=== PATIENT | male | born 1985 | race Caucasian/White ===

== ENCOUNTER 2021-09-14 08:57 | Outpatient (REF) | payer OTHER, SELFPAY ==
[2021-09-14 11:39] LABS: Hematocrit 47.7 % (42.0-52.0); Hemoglobin 15.6 g/dl (14.0-18.0); Mean Corpuscular HGB Conc 32.7 g/dl (31.0-36.0); Mean Corpuscular Hemoglobin 28.5 pg (27.0-33.0); Mean Corpuscular Volume 87.2 fL (80.0-98.0); Mean Platelet Volume 9.5 fL (9.4-12.4); Platelet Count 403 X10*3/uL (160-400); Red Blood Count 5.47 X10*6/uL (4.60-5.80); Red Cell Distribution Width 14.7 % (11.0-16.0)
[2021-09-14 12:05] LABS: Alanine Aminotransferase 30 U/L (0-40); Albumin Level 4.8 g/dL (3.5-5.0); Alkaline Phosphatase 65 U/L (39-117); Anion Gap 13 (12-20); Aspartate Amino Transferase 19 U/L (5-37); Bilirubin Total 0.5 mg/dL (0.0-1.0); Blood Urea Nitrogen 15 mg/dL (9-16); Calcium 10.3 mg/dL (8.4-10.2); Carbon Dioxide 26 mmol/L (22-29); Chloride 108 mmol/L (96-108); Cholesterol 350 mg/dL; Estimated Glomerular Filt Rate > 60; Glucose Fasting 96 mg/dL (60-99); HDL Cholesterol 53 mg/dL; LDL Cholesterol Calculated 245 mg/dl; Potassium 4.7 mmol/L (3.3-5.1); Sodium 142 mmol/L (135-145); Total Protein 7.4 g/dL (6.5-8.0); Triglycerides 260 mg/dL
== END 2021-09-14 08:58 | disposition home or self-care (01) ==
LOC: HO.HMGCLDS 08:57
PROVIDERS: PCP Internal Medicine; Visit Provider Internal Medicine
DX: Z00.00 Encounter for general adult medical examination without abnormal findings (principal); F41.9 Anxiety disorder, unspecified
CPT/HCPCS: 36415; 80053; 80061; 85027

== ENCOUNTER 2021-10-07 13:00 | Outpatient (RCR) | payer OTHER, SELFPAY ==
--- NOTE | 2021-09-29 12:40 | MHC.PT.EP ---
[facility] [place] Office [place] Office [place] Office [address] Ameya Dodson [address] [phone] F: [phone] F: [phone] F: [phone] F: [phone] Physical Therapy Plan of Care Date of Evaluation: Date of Surgery: n/a Diagnosis: cervical radiculopathy Assessment: Patient is a 36 year old male presenting to PT with complaints of pain in his neck. Pt reports onset of pain began 6-7 years ago due to insidious onset. He presents today with impairments in pain, cervical ROM, DNF strength, headaches, and posture. Pt's current occupation is none, with baseline physical activities including sleep and ADLs. Pt expresses snf goal of getting back to the gym and lifting weights, and is motivated to work towards this in PT. Clinical presentation today is most consistent with signs and sx associated with possible cervical radiculopathy vs cervicogenic headaches and pt will benefit from skilled PT to address the following problems and impairments noted upon evaluation: pain, cervical ROM, DNF strength, headaches, and posture. These problems limit the patient with the following functional activities: ADLs and sleep. The prescribed treatment plan of care is medically necessary. Co-morbidities of none were identified and taken into considerations of plan of care. Pt was educated on HEP, role of PT, prognosis, POC. Frequency and Duration: The patient will be seen 2 x week x 4 weeks Short Term Goals: Pt will demonstrate <2 headaches a week in 2 weeks. Pt will demonstrate cervical AROM in available range with min to no pain in 2 weeks. Pt will demonstrate ability to perform a chin tuck without cues and appropriate form in 2 weeks. Pt will demonstrate improved postural awareness by sitting with biomechanically correct posture without cues throughout session to improve overall postural function in 2 weeks. 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 Pt will demonstrate ability to sleep through the night with min to no pain in 4 weeks. Pt will demonstrate ability to complete all ADLs with min to no pain in 4 weeks for return to PLOF. Treatment Plan: Modalities to reduce pain, spasms and effusion. Manual therapy to restore motion and function. Therapeutic exercise to improve strength and flexibility. Neuromuscular re-education for posture and balance. Therapeutic activities to return to functional activities of daily living. Electronically signed by: Leatha Bowman PT, DPT, ATC Please sign and return to therapist. Thank you for your referral.
--- NOTE | 2021-12-03 11:13 | MHC.PT.DC ---
[facility] [place] Office [place] Office [place] Office [address] Ameya Dodson [address] [phone] F: [phone] F: [phone] F: [phone] F: [phone] Physical Therapy Discharge Report Diagnosis: cervical radiculopathy Date of Surgery: n/a Date of Evaluation: 09/29/21 Date of Discharge: 12/03/21 Treatments to Date: 3 Cancellations to Date: 6 No Shows to Date: 1 Discharge Status: Visit Non-compliance Discharge Summary: Pt had been placed on 30 day hold and instructed to reach out if he would like to be scheduled. He has not done so and therefore current status unknown at this time. Electronically signed by: Leatha Bowman, PT, DPT, ATC Please sign and return to therapist. Thank you for your referral.
== END 2021-12-03 11:13 | disposition home or self-care (01) ==
LOC: HO.PTCHIC 13:00
PROVIDERS: PCP Internal Medicine; Visit Provider Internal Medicine
DX: M54.12 Radiculopathy, cervical region (principal)
CPT/HCPCS: 97110; 97140; 97161

== ENCOUNTER 2021-11-04 13:41 | Outpatient (REF) | payer OTHER, SELFPAY ==
--- NOTE | ~2021-11-04 | MR_ITS ---
MRI OF THE BRAIN WITHOUT IV CONTRAST INDICATION: Headache. COMPARISON: MRI brain 05/25/2017. TECHNIQUE: Multiplanar multisequence MR imaging of the brain was obtained without IV contrast. FINDINGS: There is no hydrocephalus, extra-axial surface collection, or herniation. The major flow voids at the skull base are preserved. There is no acute infarct on diffusion-weighted imaging. There is no intracranial hemorrhage on the gradient recalled echo acquisition. The midline structures are normal. The cerebellar tonsils are normally positioned. The cerebellum and brainstem are normal. The craniocervical junction is normal. Osseous marrow signal intensity is homogenous. The visualized soft tissues are unremarkable. MR/MR head/brain wo con IMPRESSION: Unremarkable MRI of the brain.
== END 2021-11-04 13:42 | disposition home or self-care (01) ==
LOC: HO.MRI 13:41
PROVIDERS: Visit Provider Internal Medicine
DX: G43.909 Migraine, unspecified, not intractable, without status migrainosus (principal); M54.12 Radiculopathy, cervical region
CPT/HCPCS: 70551

== ENCOUNTER 2021-12-21 12:32 | Outpatient (REF) | payer OTHER, SELFPAY ==
[2021-12-21 14:03] LABS: Cholesterol 254 mg/dL; HDL Cholesterol 48 mg/dL; LDL Cholesterol Calculated 163 mg/dl; Triglycerides 219 mg/dL
== END 2021-12-21 12:33 | disposition home or self-care (01) ==
LOC: HO.HMGCLDS 12:32
PROVIDERS: PCP Internal Medicine; Visit Provider Internal Medicine
DX: E78.5 Hyperlipidemia, unspecified (principal); D49.2 Neoplasm of unspecified behavior of bone, soft tissue, and skin; G43.909 Migraine, unspecified, not intractable, without status migrainosus
CPT/HCPCS: 36415; 80061

== ENCOUNTER 2022-04-28 11:36 | Outpatient (REF) | payer OTHER, SELFPAY ==
[2022-04-28 13:42] LABS: MANUAL DIFF FLAG NO
[2022-04-28 13:49] LABS: Basophils Absolute Auto 0.1 X10*3/uL (0.0-0.2); Basophils Percent Auto 1.1 % (0-2); Eosinophils Absolute Auto 0.2 X10*3/uL (0.0-0.4); Eosinophils Percent Auto 2.4 % (0-4); Hematocrit 44.9 % (42.0-52.0); Hemoglobin 14.6 g/dl (14.0-18.0); Imm Gran Abs Auto 0.02 X10*3/uL (0.00-0.03); Imm Gran Pct Auto 0.3 % (0.0-0.4); Lymphocytes Percent Auto 30.9 % (20-40); Mean Corpuscular HGB Conc 32.5 g/dl (31.0-36.0); Mean Corpuscular Hemoglobin 27.9 pg (27.0-33.0); Mean Corpuscular Volume 85.9 fL (80.0-98.0); Mean Platelet Volume 9.7 fL (9.4-12.4); Monocytes Absolute Auto 0.6 X10*3/uL (0.1-1.2); Neutrophils Absolute Auto 3.7 x10*3/uL (2.0-8.3); Neutrophils Percent Auto 56.3 % (45-73); Platelet Count 446 X10*3/uL (160-400); Red Blood Count 5.23 X10*6/uL (4.60-5.80); Red Cell Distribution Width 15.2 % (11.0-16.0); White Blood Count 6.5 X10*3/uL (4.8-10.8)
[2022-04-28 14:12] LABS: Alanine Aminotransferase 23 U/L (0-40); Albumin Level 4.8 g/dL (3.5-5.0); Alkaline Phosphatase 68 U/L (39-117); Anion Gap 16 (12-20); Aspartate Amino Transferase 21 U/L (5-37); Bilirubin Total 0.4 mg/dL (0.0-1.0); Blood Urea Nitrogen 18 mg/dL (9-16); Calcium 9.9 mg/dL (8.4-10.2); Carbon Dioxide 27 mmol/L (22-29); Chloride 105 mmol/L (96-108); Cholesterol 292 mg/dL; Estimated Glomerular Filt Rate > 60; Glucose Fasting 93 mg/dL (60-99); HDL Cholesterol 58 mg/dL; LDL Cholesterol Calculated 205 mg/dl; Potassium 4.9 mmol/L (3.3-5.1); Sodium 143 mmol/L (135-145); Total Protein 7.4 g/dL (6.5-8.0); Triglycerides 147 mg/dL; Uric Acid 6.5 mg/dL (3.4-7.0)
[2022-04-28 14:13] LABS: Uric Acid Urine Random 83.4 mg/dL
[2022-04-28 14:28] LABS: TSH reflex Free T4 0.58 uIU/mL (0.32-4.0)
[2022-04-30 18:16] LABS: Calcium, Random Urine 18.5 mg/dL
[2022-05-02 17:32] LABS: PTHI 43 pg/mL (16-77)
[2022-05-03 19:12] LABS: Citric Acid, Random Urine 174 mg/g creat (65-650); Creatinine, Random Urine 217 mg/dL (20-320)
== END 2022-04-28 11:37 | disposition home or self-care (01) ==
LOC: HO.HMGCLDS 11:36
PROVIDERS: PCP Internal Medicine; Visit Provider Internal Medicine
DX: E78.5 Hyperlipidemia, unspecified (principal); N20.0 Calculus of kidney
CPT/HCPCS: 36415; 80053; 80061; 82310; 82330; 82507; 83970; 84300; 84443; 84550; 84560; 85025

== ENCOUNTER → 2022-06-29 08:52 | Outpatient (BNVA) | payer OTHER, SELFPAY | PROVIDERS: PCP Internal Medicine; Visit Provider Dietitian, Registered | DX: E78.5 Hyperlipidemia, unspecified (principal) | CPT/HCPCS: 97802 ==

== ENCOUNTER 2023-07-27 08:57 | Outpatient (AMB) | payer OTHER, SELFPAY ==
--- NOTE | 2023-07-27 09:00 | MHC.PC.OV ---
Vital Signs 07/27/23 09:01 Height 5 ft 7 in Weight 197 lb BMI 30.9 BP 110/74 Blood Pressure Location Lt brachial Position Sitting Pulse 87 Pulse Source Pulse Oximeter Pulse Oximetry (%) 98 Oxygen Delivery Method Room Air Intake Visit Reasons: Annual PE/hemorrhoids Intake Note: Pt is here today for PE. Allergies No Known Allergies Allergy (Verified 07/27/23 09:03) Medication List - Last Reconciled 07/27/23 by Lizett Roe MD omeprazole 20 mg PO DAILY Tobacco use date assessed: 07/27/23 Dental Screening Dental Screen Date: 07/27/23 Did you have a dental visit in the last 12 months?: No Did you have a dental problem in the last 6 months where you did not have access to dental care?: Yes Was dental information given to patient?: Yes HPI Annual PE/hemorrhoids HPI Details Patient presents for physical. He complains of chronic external hemorrhoids painful and bleeding on and off for the last few years, getting worse over last few months. Patient denies abdominal pain but reports having intermittent diarrhea. Patient complains of intermittent palpitations worse when walking fast or jogging. Patient denies exercise induced chest pain but has a history of hyperlipidemia and family history of coronary artery disease. [facility] Medical History (Updated 07/27/23 @ 10:03 by Lizett Roe MD) Skin growth New onset headache Hyperlipidemia GERD (gastroesophageal reflux disease) Migraine headache Annual physical exam Anxiety Family History Father CAD (coronary artery disease), Onset Age: 40 Substance use disorder Mother Mental health disorder Social History Household Members Other:: , 11 yo son, Housing: Apartment Patient Tobacco Use Status: Current everyday Tobacco user Tobacco use type: Cigarette Cigarettes Per Day: 6 Years Smoked: 2004 e-Cigarette/Vaping Use: Never Used service: No Current occupational status: unemployed Current occupational exposures/hazards: No Cognitive needs: No Hearing needs: No Vision needs: No Questionnaire PHQ-9 Over the last 2 weeks, how often have you been bothered by any of the following problems? 1. Little interest or pleasure in doing things: not at all 2. Feeling down, depressed, or hopeless: not at all 3. Trouble falling or staying asleep, or sleeping too much: nearly every day 4. Feeling tired or having little energy: nearly every day 5. Poor appetite or overeating: several days 6. Feeling bad about yourself - or that you are a failure or have let yourself or your family down: not at all 7. Trouble concentrating on things, such as reading the newspaper or watching television: not at all 8. Moving or speaking so slowly that other people could have noticed. Or the opposite - being so fidgety or restless that you have been moving around a lot more than usual: not at all 9. Thoughts that you would be better off or of hurting yourself in some way: not at all Total score: 7 Depression Screening Interpretation: Negative Depression Screening Done: Yes Source: Developed by Drs. Chris Santos, Moira Ontiveros, Adebayo Trevizo and colleagues, with an educational adolfo from [employer]. Thrive Questionnaire Date Thrive assessed: 07/27/23 I am a: Patient What is your living situation today?: I have a steady place to live Within the past 12 months, did the food you bought not last and you didn't have the money to get more?: Never true Within the past 12 months, did you worry whether your food would run out before you got money to buy more?: Never true Do you have trouble paying for medicines?: Yes Do you have trouble getting transportation to medical appointments?: No Do you have trouble paying your heating and electricity bill?: No Do you have trouble taking care of your child, family member or friend?: No Do you have trouble with day-to-day activities such as bathing, preparing meals, shopping, managing finances, etc.?: No Are you currently unemployed and looking for a job?: No Are you interested in more education?: Yes Please select the resources that you would like help with: Education AUDIT C Alcohol Use Questionnaire (AUDIT-C) 1. How often do you have a drink containing alcohol?: Monthly or less 2. How many drinks containing alcohol do you have on a typical day when you are drinking?: 1 or 2 3. How often do you have six or more drinks on one occasion?: Never Total Score: 1 ALIX-7 AMB Questionnaire ALIX-7 Date ALIX - 7 assessed: 07/27/23 Feeling nervous, anxious, or on edge: 1 = Several days Not being able to stop or control worryin = Several days Worrying too much about different things: 0 = Not at all Trouble relaxin = Several days Being so restless that it is hard to sit still: 0 = Not at all Becoming easily annoyed or irritable: 0 = Not at all Feeling afraid as if something awful might happen: 1 = Several days Total ALIX-7 score (0-4 normal; 5-9 mild; 10-14 moderate; 15-21 severe): 4 Source: Developed by Drs. Chris Santos, Moira Ontiveros, Adebayo Trevizo and colleagues, with an educational adolfo from [employer]. Review of Systems Const All systems reviewed & are unremarkable except as noted in HPI and below Reports no additional complaints Eyes Reports no additional complaints ENT Reports no additional complaints Card Reports no additional complaints Resp Reports no additional complaints GI Reports no additional complaints Reports no additional complaints Musc Reports no additional complaints Physical exam (Primary Care) Vital Signs: Last Vital Signs Pulse 87 07/27/23 09:01 BP 110/74 07/27/23 09:01 Pulse Ox 98 07/27/23 09:01 Oxygen Delivery Method Room Air 07/27/23 09:01 BMI result Body Mass Index 30.9 Tobacco/Smoking Status: Tobacco use Status Tobacco use date assessed 07/27/23 07/27/23 09:08 Patient Tobacco Use Status Current everyday Tobacco 07/27/23 09:34 Tobacco use type Cigarette 07/27/23 09:34 e-Cigarette/Vaping Use Never Used 07/27/23 09:34 Depression Screening Interpretation: Negative Thrive Assessment: Date of Thrive Assessment Date Thrive assessed 10/22/21 07/27/23 09:01 Const General: no acute distress HENMT Head: Yes normal to inspection Ears: hearing grossly normal bilaterally Face and sinus: Yes normal facial exam Mouth: Normal oral and palatal mucosa present Throat: Yes posterior oropharynx normal Eyes General: appearance normal, both eyes and all related structures Neck Neck: Yes no lymphadenopathy and Yes supple Resp Effort & Inspection: normal respiratory effort Auscultation: clear to auscultation bilaterally Cardio Rhythm: regular rhythm Heart sounds: S1 normal heart sound present and S2 normal heart sound present GI Inspection: Yes normal to inspection Palpation (GI): Soft to palpation Percussion: Yes normal to percussion Auscultation: normal bowel sounds Other: Patient declined rectal exam Assessment and Plan Assessment & Plan (1) Nephrolithiasis: Comment: since 21 year old, s/p stent 03/15, f/u Dr. Casey Code(s): N20.0 - Calculus of kidney Plan: Follow-up with nephrology (2) Hyperlipidemia: Code(s): E78.5 - Hyperlipidemia, unspecified Plan: Low-cholesterol diet regular physical activity discussed with the patient. he will have a fasting blood work for lipid profile. He agreed to starting 20 mg of atorvastatin and will have repeat lipid profile in 2 months (3) Annual physical exam: Code(s): Z00.00 - Encounter for general adult medical examination without abnormal findings Plan: Well-balanced diet regular physical activity discussed with the patient (4) Rectal bleeding: Code(s): K62.5 - Hemorrhage of anus and rectum Plan: Referred to GI (5) Hemorrhoids: Code(s): K64.9 - Unspecified hemorrhoids Plan: Try Proctosol cream and referred to GI, well-balanced high-fiber diet (6) Palpitations: Code(s): R00.2 - Palpitations Plan: EKG showed normal sinus rhythm no ST-T changes. schedule exercise stress test. (7) FHx: early coronary artery disease: Comment: father [place] at 44 Code(s): Z82.49 - Family history of ischemic heart disease and other diseases of the circulatory system Orders: Orders Lipid Panel Today E78.5 - Hyperlipidemia, unspecified, Z00.00 - Encounter for general adult medical examination without abnormal findings AMB EKG-In Office Today K21.9 - Gastro-esophageal reflux disease without esophagitis, R00.2 - Palpitations Comprehensive [place]. Panel Fast 2 Months E78.5 - Hyperlipidemia, unspecified Comprehensive [place]. Panel Fast Today E78.5 - Hyperlipidemia, unspecified, Z00.00 - Encounter for general adult medical examination without abnormal findings Complete Blood Count Auto Diff Today E78.5 - Hyperlipidemia, unspecified, Z00.00 - Encounter for general adult medical examination without abnormal findings TSH reflex Free T4 Today E78.5 - Hyperlipidemia, unspecified, Z00.00 - Encounter for general adult medical examination without abnormal findings CA stress test Today R00.2 - Palpitations, Z82.49 - Family history of ischemic heart disease and other diseases of the circulatory system Lipid Panel 2 Months E78.5 - Hyperlipidemia, unspecified Referrals Urology Referral N20.0 - Calculus of kidney Gastroenterology Referral K62.5 - Hemorrhage of anus and rectum, K64.9 - Unspecified hemorrhoids Medications: New Proctosol HC 2.5% (hydrocortisone) 1 appl MD BID-QID PRN 60 grams 1RF hemorrhoids NS atorvastatin 20 mg PO DAILY 90 tabs 3RF Refilled omeprazole 20 mg PO DAILY 90 caps 3RF Coding Level of Care Code Est Pt Prev Care 40-64y(69534) Diagnoses Nephrolithiasis N20.0 Hyperlipidemia E78.5 Annual physical exam Z00.00 Rectal bleeding K62.5 Hemorrhoids K64.9 Palpitations R00.2 FHx: early coronary artery disease Z82.49
[2023-07-27 09:01] VITALS: BP 110/74; PULSE 87; O2SAT 98; BMI 30.9
== END 2023-07-27 10:04 | disposition home or self-care (01) ==
PROVIDERS: PCP Internal Medicine; Visit Provider Internal Medicine
DX: Z00.00 Encounter for general adult medical examination without abnormal findings (principal); N20.0 Calculus of kidney; E78.5 Hyperlipidemia, unspecified; K62.5 Hemorrhage of anus and rectum; K64.9 Unspecified hemorrhoids; R00.2 Palpitations; Z82.49 Family history of ischemic heart disease and other diseases of the circulatory system; F17.210 Nicotine dependence, cigarettes, uncomplicated
CPT/HCPCS: 99396

== ENCOUNTER 2023-07-27 10:04 | Outpatient (REF) | payer OTHER, SELFPAY ==
[2023-07-27 13:13] LABS: MANUAL DIFF FLAG NO
[2023-07-27 13:32] LABS: Basophils Percent Auto 0.6 % (0-2); Eosinophils Absolute Auto 0.2 X10*3/uL (0.0-0.4); Eosinophils Percent Auto 2.6 % (0-4); Hematocrit 45.3 % (42.0-52.0); Hemoglobin 14.9 g/dl (14.0-18.0); Imm Gran Abs Auto 0.02 X10*3/uL (0.00-0.03); Imm Gran Pct Auto 0.3 % (0.0-0.4); Lymphocytes Absolute Auto 2.4 X10*3/uL (1.2-4.9); Lymphocytes Percent Auto 34.8 % (20-40); Mean Corpuscular HGB Conc 32.9 g/dl (31.0-36.0); Mean Corpuscular Hemoglobin 28.6 pg (27.0-33.0); Mean Corpuscular Volume 86.9 fL (80.0-98.0); Mean Platelet Volume 9.4 fL (9.4-12.4); Monocytes Absolute Auto 0.6 X10*3/uL (0.1-1.2); Monocytes Percent Auto 9.2 % (2-11); Neutrophils Absolute Auto 3.7 x10*3/uL (2.0-8.3); Neutrophils Percent Auto 52.5 % (45-73); Platelet Count 409 X10*3/uL (160-400); Red Blood Count 5.21 X10*6/uL (4.60-5.80); Red Cell Distribution Width 14.5 % (11.0-16.0)
[2023-07-27 13:45] LABS: Alanine Aminotransferase 21 U/L (0-40); Albumin Level 4.5 g/dL (3.5-5.0); Alkaline Phosphatase 60 U/L (39-117); Anion Gap 10 (12-20); Aspartate Amino Transferase 18 U/L (5-37); Bilirubin Total 0.3 mg/dL (0.0-1.0); Blood Urea Nitrogen 14 mg/dL (9-16); Calcium 10.2 mg/dL (8.4-10.2); Carbon Dioxide 27 mmol/L (22-29); Chloride 112 mmol/L (96-108); Cholesterol 253 mg/dL (<200); Estimated Glomerular Filt Rate > 60; Glucose Fasting 97 mg/dL (60-99); HDL Cholesterol 52 mg/dL (>40); LDL Cholesterol Calculated 179 mg/dL (<100); Potassium 5.1 mmol/L (3.3-5.1); Sodium 144 mmol/L (135-145); Total Protein 7.3 g/dL (6.5-8.0); Triglycerides 113 mg/dL (<150)
[2023-07-27 14:32] LABS: TSH reflex Free T4 1.09 uIU/mL (0.32-4.0)
== END 2023-07-27 10:05 | disposition home or self-care (01) ==
LOC: HO.HMGCLDS 10:04
PROVIDERS: PCP Internal Medicine; Visit Provider Internal Medicine
DX: Z00.00 Encounter for general adult medical examination without abnormal findings (principal); E78.5 Hyperlipidemia, unspecified
CPT/HCPCS: 36415; 80053; 80061; 84443; 85025

== ENCOUNTER 2023-10-06 11:17 | Outpatient (AMB) | payer OTHER, SELFPAY ==
--- NOTE | 2023-10-06 11:22 | MHC.OFFVIS ---
Intake Vital Signs 10/06/23 11:25 Height 5 ft 7 in Weight 197 lb BMI 30.9 BP 120/59 L Blood Pressure Location Lt brachial Position Sitting Pulse 75 Intake Visit Reasons: Hemorrhoids Intake Note: Patient new consult for hemorrhoids. Patient cc: abdominal pain and bloating on and off, nauseas, diarrhea, and hemorrhoids with blood. Baseball Glove Stuffer Required: No Accompanied by: Self / Same As Patient Allergies No Known Allergies Allergy (Verified 10/06/23 11:21) HPI Hemorrhoids HPI Details 38-year-old male with past medical history of GERD, hyperlipidemia, migraine headache, palpitations, hemorrhoids is here today for initial consultation patient reports that lately he has been suffering from increased rectal bleeding and rectal pain. Diagnosed with hemorrhoids in the past. Never had any surgery. Patient is at this point where he would like to see a surgeon to see if his hemorrhoids can be removed. Patient also reports symptoms of abdominal cramping, postprandial abdominal bloating. Sometimes diarrhea and sometimes constipation. Patient denies melena or unintentional weight loss patient reports occasional nausea specially in the morning. Reports occasional dyspepsia without dysphagia or odynophagia [facility] Medical History (Updated 10/08/23 @ 13:22 by Yanira Gamez, [facility]) Skin growth New onset headache Hyperlipidemia GERD (gastroesophageal reflux disease) Migraine headache Annual physical exam Anxiety Surgical History (Updated 10/06/23 @ 11:22 by Mariama Cruz) History of kidney stones Family History Father CAD (coronary artery disease), Onset Age: 40 Substance use disorder Mother Mental health disorder Social History Household Members Other:: , 11 yo son, Housing: Apartment Patient Tobacco Use Status: Current everyday Tobacco user Tobacco use type: Cigarette Cigarettes Per Day: 6 Years Smoked: 2004 e-Cigarette/Vaping Use: Never Used service: No Current occupational status: unemployed Current occupational exposures/hazards: No Cognitive needs: No Hearing needs: No Vision needs: No Review of Systems Const Denies weight gain and Denies weight loss ENT Reports no additional complaints, Denies dysphagia and Denies odynophagia Card Reports no additional complaints Resp Reports no additional complaints GI Denies abdominal pain, Denies belching, Denies melena, Reports bloating, Reports hematochezia, Reports change in bowel habits, Reports constipation, Denies dysphagia, Denies excessive flatus, Denies dyspepsia, Reports heartburn, Denies diarrhea, Reports loose stools, Denies nausea, Denies odynophagia and Denies vomiting Reports no additional complaints Musc Reports no additional complaints Neuro Reports no additional complaints Psych Reports no additional complaints Endo Reports no additional complaints Physical Exam Vital Signs: Last Vital Signs Pulse 75 10/06/23 11:25 BP 120/59 L 10/06/23 11:25 BMI result Body Mass Index 30.9 Const General: healthy appearing, no acute distress and well developed Nutritional Appearance: obese Orientation/consciousness: patient oriented x3 Resp Effort & Inspection: normal respiratory effort, able to speak in complete sentences, no tracheal deviation and symmetric chest movement Auscultation: clear to auscultation bilaterally Cardio Rate: regular rate GI Inspection: Yes normal to inspection, No distended and Yes obesity Palpation (GI): Soft to palpation, not firm, nontender and No hepatosplenomegaly present Auscultation: normal bowel sounds General: Yes no CVA tenderness Back/Spine/Pelvis Back: no CVA tenderness Skin General skin exam: elasticity normal, turgor normal and dry skin Neuro General: patient oriented x3 Psych Appearance: grossly normal Mental Status: mental status grossly normal Assessment & Plan Assessment & Plan (1) Hemorrhoids: Code(s): K64.9 - Unspecified hemorrhoids Qualifiers: Hemorrhoid type: other Qualified Code(s): K64.8 - Other hemorrhoids (2) GERD (gastroesophageal reflux disease): Code(s): K21.9 - Gastro-esophageal reflux disease without esophagitis Qualifiers: Esophagitis presence: esophagitis presence not specified Qualified Code(s): K21.9 - Gastro-esophageal reflux disease without esophagitis (3) Postprandial abdominal bloating: Code(s): R14.0 - Abdominal distension (gaseous) (4) Postprandial diarrhea: Code(s): K52.9 - Noninfective gastroenteritis and colitis, unspecified Plan Will try to take fiber to help him bulk his stools and stool softener at nighttime to help him move his bowels better. Patient was encouraged to follow FODMAP diet. Continue omeprazole for GERD. Avoid dietary triggers and late night snacking. Staying upright for minimum 3 hours after meals discussed with patient. Low FODMAP diet discussed with patient as well. Patient will be referred to general surgery for possible hemorrhoidectomy as requested. Will check vitamin B12, folate, vitamin-D level. Will send a script for Proctosol for his hemorrhoids. Sitz baths recommended with Epsom salts. I will see patient in 3 months, sooner on as needed basis. Patient is agreeable to this plan and verbalizes understanding of instructions. He was given the opportunity to ask questions and all questions answered. Thank you for allowing me to participate his care Orders: Orders Vitamin B12 and Folate 10/06/23 R19.7 - Diarrhea, unspecified Vitamin D 25-OH (D2 and D3) 10/06/23 E55.9 - Vitamin D deficiency, unspecified Referrals General Surgery Referral K64.9 - Unspecified hemorrhoids Medications: New docusate sodium 200 mg (2 x 100 mg) PO BEDTIME 180 caps 3RF K59.00 - Constipation, unspecified methylcellulose (laxative) (Citrucel) take it with full glass of water 500 mg PO DAILY 90 tabs 2RF K59.00 - Constipation, unspecified Refilled Proctosol HC 2.5% (hydrocortisone) 1 appl [place] BID-QID PRN 60 grams 1RF hemorrhoids NS Coding Level of Care Code New Pt Level 4 (20869) Diagnoses Other hemorrhoids K64.8 Hemorrhoid type: other Gastroesophageal reflux disease, unspecified whether esophagitis present K21.9 Esophagitis presence: esophagitis presence not specified Postprandial abdominal bloating R14.0 Postprandial diarrhea K52.9 Time Spent (min) 45 Comment 30 minutes spent with patient and additional 15 minutes spent reviewing his records
[2023-10-06 11:25] VITALS: BP 120/59; PULSE 75; BMI 30.9
== END 2023-10-06 11:49 | disposition home or self-care (01) ==
PROVIDERS: PCP Internal Medicine; Visit Provider Nurse Practitioner Family
DX: K64.8 Other hemorrhoids (principal); K21.9 Gastro-esophageal reflux disease without esophagitis; R14.0 Abdominal distension (gaseous); K52.9 Noninfective gastroenteritis and colitis, unspecified
CPT/HCPCS: 99204

== ENCOUNTER → 2023-10-06 11:17 | Outpatient (BNVA) | payer OTHER, SELFPAY | PROVIDERS: PCP Internal Medicine; Visit Provider Nurse Practitioner Family | DX: K64.8 Other hemorrhoids (principal); K21.9 Gastro-esophageal reflux disease without esophagitis; R14.0 Abdominal distension (gaseous); K52.9 Noninfective gastroenteritis and colitis, unspecified | CPT/HCPCS: 99202 ==

== ENCOUNTER 2023-10-19 14:44 | Outpatient (AMB) | payer OTHER, SELFPAY ==
--- NOTE | 2023-10-19 14:59 | A.OFFVIS_ITS ---
Intake Vital Signs 10/19/23 15:00 Height 5 ft 7 in Weight 199 lb BMI 31.2 BP 134/73 Blood Pressure Location Rt brachial Position Sitting Pulse 95 Intake Visit Reasons: Hemorrhoids Intake Note: This patient presents for an assessment for hemorrhoids. Patient c/o; reports rectal bleeding. Feeder Loader Required: No Library Clerical Assistant: Library Clerical Assistant Present (TammyRadha) Accompanied by: Self / Same As Patient Allergies No Known Allergies Allergy (Verified 10/06/23 11:21) Medication List - Last Reconciled 10/19/23 by Samir Westfall MD atorvastatin 20 mg PO DAILY docusate sodium 200 mg (2 x 100 mg) PO BEDTIME methylcellulose (laxative) (Citrucel) 500 mg PO DAILY omeprazole 20 mg PO DAILY Proctosol HC 2.5% (hydrocortisone) 1 appl ME BID-QID PRN NS HPI Hemorrhoids HPI Details 38-year-old male here for hemorrhoid iss ues. He says that he has had hemorrhoids for many years. However, for the past 2 years, he feels that his hemorrhoid symptoms have been worsening. He describes very frequent prolapse now along with associated pain and bleeding. He says that each time he walks for long periods of time, the hemorrhoids would ?pop out?. He would be extremely uncomfortable with this. He says that his hemorrhoid symptoms are affecting his lifestyle now. He says he really wants to proceed with hemorrhoid surgery. He admits to having severe anxiety from childhood trauma. [facility] Medical History (Updated 10/19/23 @ 15:26 by Samir Westfall MD) Internal and external bleeding hemorrhoids Skin growth New onset headache Hyperlipidemia GERD (gastroesophageal reflux disease) Migraine headache Annual physical exam Anxiety Surgical History History of kidney stones Family History Father CAD (coronary artery disease), Onset Age: 40 Substance use disorder Mother Mental health disorder Maternal Aunt Throat cancer Social History Household Members Other:: , 11 yo son, Housing: Apartment Patient Tobacco Use Status: Current everyday Tobacco user Tobacco use type: Cigarette Cigarettes Per Day: 6 Years Smoked: 2004 e-Cigarette/Vaping Use: Never Used service: No Current occupational status: unemployed Current occupational exposures/hazards: No Cognitive needs: No Hearing needs: No Vision needs: No Review of Systems Const Denies chills and Denies fever(s) Card Denies chest pain, Denies dyspnea and Denies dyspnea on exertion Resp Denies cough, Denies dyspnea and Denies dyspnea on exertion GI Reports hematochezia, Denies change in bowel habits and Reports constipation Denies hematuria and Denies difficulty urinating Musc Denies back pain and Denies limited range of motion Neuro Denies focal weakness and Denies convulsions Psych Denies depression and Denies mood swings Physical Exam Vital Signs: Last Vital Signs Pulse 95 10/19/23 15:00 BP 134/73 10/19/23 15:00 BMI result Body Mass Index 31.2 Const Other: Very anxious General: comfortable and no acute distress Orientation/consciousness: patient oriented x3 Neck Neck: Yes no lymphadenopathy Resp Auscultation: clear to auscultation bilaterally Cardio Rhythm: regular rhythm GI Other: Rectal exam shows external hemorrhoids on both left and right side tender, unable to tolerate digital exam or anoscopy Palpation (GI): Soft to palpation, nontender and no guarding Neuro General: patient oriented x3 Assessment & Plan Assessment & Plan (1) Internal and external bleeding hemorrhoids: Code(s): K64.4 - Residual hemorrhoidal skin tags; K64.8 - Other hemorrhoids Plan: He describes worsening symptoms with hemorrhoids. He says this prolapse frequently now and become swollen. He also describes frequent bleeding as well as episodes of pain He wants to proceed with hemorrhoidectomy. Explained the technique of exam under anesthesia hemorrhoidectomy and palpable sphincterotomy. I discussed the risks including but not limited to bleeding, infections, postop pain, as well as the benefits and alternatives. He says he really wants to proceed. I also explained to him what to expect postoperatively. Coding Level of Care Code New Pt Level 3 (70883) Diagnoses Internal and external bleeding hemorrhoids K64.4; K64.8
[2023-10-19 15:00] VITALS: BP 134/73; PULSE 95; BMI 31.2
== END 2023-10-19 15:31 | disposition home or self-care (01) ==
PROVIDERS: PCP Internal Medicine; Visit Provider Surgery
DX: K64.4 Residual hemorrhoidal skin tags (principal); K64.8 Other hemorrhoids
CPT/HCPCS: 99203

== ENCOUNTER → 2023-10-19 14:44 | Outpatient (BNVA) | payer OTHER, SELFPAY | PROVIDERS: PCP Internal Medicine; Visit Provider Surgery | DX: K64.4 Residual hemorrhoidal skin tags (principal); K64.8 Other hemorrhoids | CPT/HCPCS: 99202 ==

== ENCOUNTER → 2023-11-01 10:15 | Outpatient (REF) | payer OTHER, SELFPAY ==
--- NOTE | 2023-11-01 10:25 | CA_ITS ---
Acquisition Time: 2023-11-01 10:34:29 Total Exercise Time: 00:11:07 Test Indications: PALPITATIONS Medications: SEE H Protocol: SEDA Max HR: 160 BPM 88% of Pred: 180 BPM Max BP: 160/060 mmHG Max Work Load: 13.3 METS Exercise stress test exercise 11 min 7 sec of Seda protocol achieving 89% MPHR, with mild SOB, no chest discomfort, without arrhythmias, with normotensive repsonse to exercise, without EKG chnages. Test reviewed with Dr. Bonilla. Referred By: Lizett Roe Overread By: Julisa Calvillo
== END ==
LOC: HO.CARD 10:15
PROVIDERS: PCP Internal Medicine; Visit Provider Internal Medicine
DX: R00.2 Palpitations (principal); Z82.49 Family history of ischemic heart disease and other diseases of the circulatory system
CPT/HCPCS: 93017

== ENCOUNTER → 2023-11-01 10:25 | Outpatient (BNV) | payer OTHER, SELFPAY | PROVIDERS: PCP Internal Medicine; Visit Provider Nurse Practitioner | DX: R06.02 Shortness of breath (principal); R00.2 Palpitations | CPT/HCPCS: 93016; 93018 ==

== ENCOUNTER 2023-11-07 07:56 | Outpatient (AMB) | payer OTHER, SELFPAY ==
--- NOTE | 2023-11-07 07:58 | MHC.PC.OV ---
Vital Signs 11/07/23 08:00 Height 5 ft 7 in Weight 200 lb BMI 31.3 BP 104/64 Blood Pressure Location Lt brachial Position Sitting Pulse 78 Pulse Source Pulse Oximeter Pulse Oximetry (%) 98 Oxygen Delivery Method Room Air Intake Visit Reasons: Cardiac clearance Intake Note: Pt is here today for a pre op. Pt states that he needs clearence for his surgery on 11/10/23. Pt states that he had stress test done on 11/01/23. Allergies acetaminophen [From Tylenol] Adverse Reaction (Verified 11/07/23 08:13) Nausea Medication List - Last Reconciled 11/07/23 by Lizett Roe MD atorvastatin 20 mg PO DAILY docusate sodium 200 mg (2 x 100 mg) PO BEDTIME methylcellulose (laxative) (Citrucel) 500 mg PO DAILY omeprazole 20 mg PO DAILY Proctosol HC 2.5% (hydrocortisone) 1 appl HI BID-QID PRN NS Tobacco use date assessed: 11/07/23 Dental Screening Dental Screen Date: 11/07/23 Did you have a dental visit in the last 12 months?: Yes Did you have a dental problem in the last 6 months where you did not have access to dental care?: No Was dental information given to patient?: Patient has dentist HPI Cardiac clearance HPI Details Patient presents for the follow-up of stress test which was negative. Patient reports chronic anxiety and intermittent panic attacks on and off for the last 10 years. Patient tried counseling in the past which was not successful. patient tried medication does not remember the name but developed side effects. Patient will have hemorrhoidectomy. [facility] Medical History (Updated 11/07/23 @ 12:17 by Lizett Roe MD) Renal calculi Palpitations Internal and external bleeding hemorrhoids Skin growth New onset headache Hyperlipidemia GERD (gastroesophageal reflux disease) Migraine headache Anxiety Surgical History (Updated 10/27/23 @ 09:54 by Melinda Eagle RN) Hx of cystoscopy Family History Father CAD (coronary artery disease), Onset Age: 40 Substance use disorder Mother Mental health disorder Maternal Aunt Throat cancer Social History Household Members Other:: , 11 yo son, Housing: Apartment Patient Tobacco Use Status: Current everyday Tobacco user Tobacco use type: Cigarette Cigarettes Per Day: 6 Years Smoked: 2004 e-Cigarette/Vaping Use: Never Used service: No Current occupational status: unemployed Current occupational exposures/hazards: No Cognitive needs: No Hearing needs: No Vision needs: No Questionnaire PHQ-9 Over the last 2 weeks, how often have you been bothered by any of the following problems? 1. Little interest or pleasure in doing things: not at all 2. Feeling down, depressed, or hopeless: not at all 3. Trouble falling or staying asleep, or sleeping too much: nearly every day 4. Feeling tired or having little energy: nearly every day 5. Poor appetite or overeating: several days 6. Feeling bad about yourself - or that you are a failure or have let yourself or your family down: not at all 7. Trouble concentrating on things, such as reading the newspaper or watching television: not at all 8. Moving or speaking so slowly that other people could have noticed. Or the opposite - being so fidgety or restless that you have been moving around a lot more than usual: not at all 9. Thoughts that you would be better off or of hurting yourself in some way: not at all Total score: 7 Depression Screening Interpretation: Negative Depression Screening Done: Yes Source: Developed by Drs. Chris Santos, Moira Ontiveros, Adebayo Trevizo and colleagues, with an educational adolfo from [employer]. Thrive Questionnaire Date Thrive assessed: 11/07/23 I am a: Patient What is your living situation today?: I have a steady place to live Within the past 12 months, did the food you bought not last and you didn't have the money to get more?: Never true Within the past 12 months, did you worry whether your food would run out before you got money to buy more?: Never true Do you have trouble paying for medicines?: No Do you have trouble getting transportation to medical appointments?: No Do you have trouble paying your heating and electricity bill?: No Do you have trouble taking care of your child, family member or friend?: No Do you have trouble with day-to-day activities such as bathing, preparing meals, shopping, managing finances, etc.?: No Are you currently unemployed and looking for a job?: No Are you interested in more education?: No Please select the resources that you would like help with: None Currently or been in a relationship where the following occur: no concerns reported THRIVE Score: 0 AUDIT C Alcohol Use Questionnaire (AUDIT-C) 1. How often do you have a drink containing alcohol?: Monthly or less 2. How many drinks containing alcohol do you have on a typical day when you are drinking?: 1 or 2 3. How often do you have six or more drinks on one occasion?: Never Total Score: 1 ALIX-7 AMB Questionnaire ALIX-7 Date ALIX - 7 assessed: 11/07/23 Feeling nervous, anxious, or on edge: 0 = Not at all Not being able to stop or control worryin = Not at all Worrying too much about different things: 0 = Not at all Trouble relaxin = Not at all Being so restless that it is hard to sit still: 0 = Not at all Becoming easily annoyed or irritable: 0 = Not at all Feeling afraid as if something awful might happen: 0 = Not at all Total ALIX-7 score (0-4 normal; 5-9 mild; 10-14 moderate; 15-21 severe): 0 Source: Developed by Drs. Chris Santos, Moira Ontiveros, Adebayo Trevizo and colleagues, with an educational adolfo from [employer]. Review of Systems Const All systems reviewed & are unremarkable except as noted in HPI and below Reports no additional complaints Eyes Reports no additional complaints ENT Reports no additional complaints Card Reports no additional complaints Resp Reports no additional complaints GI Reports no additional complaints Reports no additional complaints Musc Reports no additional complaints Physical exam (Primary Care) Vital Signs: Last Vital Signs Pulse 78 11/07/23 08:00 BP 104/64 11/07/23 08:00 Pulse Ox 98 11/07/23 08:00 Oxygen Delivery Method Room Air 11/07/23 08:00 BMI result Body Mass Index 31.3 Tobacco/Smoking Status: Tobacco use Status Tobacco use date assessed 11/07/23 11/07/23 08:14 Patient Tobacco Use Status Current everyday Tobacco 11/07/23 07:58 Tobacco use type Cigarette 11/07/23 07:58 e-Cigarette/Vaping Use Never Used 11/07/23 07:58 PHQ-9: PHQ-9 Score PHQ-9: Total score 7 11/07/23 08:55 Depression Screening Interpretation: Negative Thrive Assessment: Date of Thrive Assessment Date Thrive assessed 11/07/23 11/07/23 08:16 Currently or been in a relationship where the following occur: no concerns reported Const General: no acute distress HENMT Head: Yes normal to inspection Resp Effort & Inspection: normal respiratory effort Auscultation: clear to auscultation bilaterally Cardio Rhythm: regular rhythm Heart sounds: S1 normal heart sound present and S2 normal heart sound present GI Inspection: Yes normal to inspection Palpation (GI): Soft to palpation Assessment and Plan Assessment & Plan (1) Hyperlipidemia: Code(s): E78.5 - Hyperlipidemia, unspecified Plan: Continue atorvastatin and patient will have fasting blood work (2) Annual physical exam: Code(s): Z00.00 - Encounter for general adult medical examination without abnormal findings (3) Anxiety: Code(s): F41.9 - Anxiety disorder, unspecified Plan: Stress management mindfulness regular physical activity discussed with the patient. He will look for a new therapist (4) Sleep apnea: Code(s): G47.30 - Sleep apnea, unspecified Plan: Schedule sleep study (5) Hemorrhoids: Code(s): K64.9 - Unspecified hemorrhoids Qualifiers: Hemorrhoid type: other Qualified Code(s): K64.8 - Other hemorrhoids Plan: Patient is medically cleared for hemorrhoidectomy Orders: Orders Lipid Panel Today E78.5 - Hyperlipidemia, unspecified, Z00.00 - Encounter for general adult medical examination without abnormal findings Comprehensive [place]. Panel Fast Today E78.5 - Hyperlipidemia, unspecified RT home sleep study Today G47.30 - Sleep apnea, unspecified Medications: Refilled omeprazole 20 mg PO DAILY 90 caps 3RF atorvastatin 20 mg PO DAILY 90 tabs 3RF atorvastatin 20 mg PO DAILY 90 tabs 3RF omeprazole 20 mg PO DAILY 90 caps 3RF Coding Level of Care Code Est Pt Level 4 (20535) Diagnoses Hyperlipidemia E78.5 Annual physical exam Z00.00 Anxiety F41.9 Sleep apnea G47.30 Other hemorrhoids K64.8 Hemorrhoid type: other
[2023-11-07 08:00] VITALS: BP 104/64; PULSE 78; O2SAT 98; BMI 31.3
== END 2023-11-07 08:57 | disposition home or self-care (01) ==
PROVIDERS: PCP Internal Medicine; Visit Provider Internal Medicine
DX: E78.5 Hyperlipidemia, unspecified (principal); F41.9 Anxiety disorder, unspecified; G47.30 Sleep apnea, unspecified; K64.8 Other hemorrhoids
CPT/HCPCS: 99214

== ENCOUNTER 2023-11-10 08:48 | Day surgery (SDC) | payer OTHER, SELFPAY ==
[2023-10-27 10:54] VITALS: BMI 31.2
--- NOTE | 2023-11-09 10:50 | P.CONAN_ITS ---
Documented by User: Dede Parra NP 11/09/23 10:53 HPI - Anesthesia Eval Consult details Narrative: 38yo M for Exam under anesthesia,Hemorrhoidectomy,poss sphincterotomy Medically cleared. (Recent EKG/Stress wnl) [facility] Active Problems Active Problems: All Active Problems (Updated 11/07/23 @ 12:17 by Lizett Roe MD) Sleep apnea (Acute) FHx: early coronary artery disease (Acute) Palpitations (Acute) Rectal bleeding (Acute) Hemorrhoids (Acute) Nephrolithiasis (Acute) Annual physical exam (Acute) Cervical radiculopathy (Acute) Internal and external bleeding hemorrhoids (Acute) Skin growth (Acute) New onset headache (Acute) Hyperlipidemia (Acute) GERD (gastroesophageal reflux disease) (Acute) Migraine headache (Acute) Anxiety (Acute) Past Medical History Medical History (Updated 11/10/23 @ 09:43 by Teresa Carvalho RN) Neck pain Renal calculi Palpitations Internal and external bleeding hemorrhoids Skin growth New onset headache Hyperlipidemia GERD (gastroesophageal reflux disease) Migraine headache Anxiety Family History Family History Father CAD (coronary artery disease), Onset Age: 40 Substance use disorder Mother Mental health disorder Maternal Aunt Throat cancer Surgical History Surgical History (Updated 10/27/23 @ 09:54 by Melinda Eagle RN) Hx of cystoscopy Social History Social History Household Members Other:: , 11 yo son, Housing: Apartment Patient Tobacco Use Status: Current everyday Tobacco user Tobacco use type: Cigarette Cigarettes Per Day: 6 Years Smoked: 2004 e-Cigarette/Vaping Use: Never Used Use of substances other than those prescribed or required for medical reasons: Yes Are you DNR?: No Advance Directives: No Advance Directives Information Provided: Yes service: No Current occupational status: unemployed Current occupational exposures/hazards: No Cognitive needs: No Hearing needs: No Vision needs: No Meds Allergies Allergy/AdvReac Type Severity Reaction Status Date / Time acetaminophen [From Tylenol] AdvReac Nausea Verified 11/07/23 08:13 Exam Height,Weight and Vital Signs: Height 5 ft 7 in Weight 90.265 kg Pertinent Lab Results Pertinent Lab Results: Laboratory Tests 07/27/23 10:18 WBC 7.0 Hgb 14.9 Hct 45.3 Plt Count 409 H Sodium 144 Potassium 5.1 Chloride 112 H Carbon Dioxide 27 BUN 14 Creatinine 0.99 Narrative Narrative: EKG 07/2023 NSR Exercise stress 10/2023 Protocol: IGOR Max HR: 160 BPM 88% of Pred: 180 BPM Max BP: 160/060 mmHG Max Work Load: 13.3 METS Exercise stress test exercise 11 min 7 sec of Igor protocol achieving 89% MPHR, with mild SOB, no chest discomfort, without arrhythmias, with normotensive repsonse to exercise, without EKG chnages. Test reviewed with Dr. Bonilla. Assessment and Plan Assessment Anesthesia Assessment: Chart Reviewed Documented by User: Kp Hedrick MD 11/10/23 11:15 [facility] Past Medical History Medical History (Updated 11/10/23 @ 09:43 by Teresa Carvalho RN) Neck pain Renal calculi Palpitations Internal and external bleeding hemorrhoids Skin growth New onset headache Hyperlipidemia GERD (gastroesophageal reflux disease) Migraine headache Anxiety Family History Family History Father CAD (coronary artery disease), Onset Age: 40 Substance use disorder Mother Mental health disorder Maternal Aunt Throat cancer Family history of problems with anesthesia: No Surgical History Surgical History (Updated 10/27/23 @ 09:54 by Melinda Eagle RN) Hx of cystoscopy History of Problems with Anesthesia: No Social History Social History Household Members Other:: , 11 yo son, Housing: Apartment Patient Tobacco Use Status: Current everyday Tobacco user Tobacco use type: Cigarette Cigarettes Per Day: 6 Years Smoked: 2004 e-Cigarette/Vaping Use: Never Used Use of substances other than those prescribed or required for medical reasons: Yes Are you DNR?: No Advance Directives: No Advance Directives Information Provided: Yes service: No Current occupational status: unemployed Current occupational exposures/hazards: No Cognitive needs: No Hearing needs: No Vision needs: No Meds Allergies Allergy/AdvReac Type Severity Reaction Status Date / Time acetaminophen [From Tylenol] AdvReac Nausea Verified 11/07/23 08:13 Exam Airway Mallampati Class: I TM Dist: >3cm Neck ROM: Full (I checked) Loose/Missing/Broken Teeth: No Heart: ok Lungs: ok Assessment and Plan Assessment Anesthesia Assessment: Anesthesia Plan Discussed Final Anesthetic Review Family History of Problems with Anesthesia: No History of Problems with Anesthesia: No NPO: Yes ASA Class: III Final Preanesthetic Review: No Changes in Pt Med Stat, Meds/Allgs Chart Reviewed, Consent Obtained/Reviewed and Anes Risks/Benef Reviewed Patient Risk: Low Procedure Risk: Intermediate Anesthetic Plan Anesthetic Plan: GA and Agree w/ Assess. and Plan Disposition: Standard PACU
[2023-11-10] VITALS (23 sets, daily range): BP systolic 100–147; BP diastolic 43–86; PULSE 65–83; RESP 0–24; TEMP 35.8–36.6; O2SAT 98–100; BMI 31.7; BMI 33.7
[2023-11-10] MEDS: Lactated Ringers 1,000 ML 100 ML IVCONT (09:50)
--- NOTE | 2023-11-10 10:52 | MHC.SHP ---
Pre-Procedural Eval Section A - 24 Hr Update-Section A only Date of Service: 11/10/23 The patient is an INPATIENT: No Changes since office visit: No Cold of Flu in the past 2 weeks, No New Medical Problems, No Changes in Medication and No Patient answered all questions The patient has been examined within 24 hours of the surgical procedure. The History & Physical has been completed within 30 days and I have reviewed it.: Yes Section B - Complete if H&P > 30 days Chief Complaint: Residual hemorrhoidal skin tags Allergies: Allergies Allergy/AdvReac Type Severity Reaction Status Date / Time acetaminophen [From Tylenol] AdvReac Nausea Verified 11/07/23 08:13 Plan I have reviewed the history and physical and performed a pertinent physical examination on my patient. No changes have occurred unless specified. Time Spent With Patient Time: Total time managing care of this patient today ____ minutes.
--- NOTE | 2023-11-10 12:25 | P.OP_ITS ---
Operative Note Operative Note Date of Service: 11/10/23 Narrative: Preop diagnosis: Internal and external hemorrhoids with frequent pain, bleeding Postop diagnosis: Large internal and external hemorrhoids with frequent pain and bleeding Procedure: Exam under anesthesia hemorrhoidectomy x2 columns Surgeon: Samir Westfall MD The patient is a 38-year-old male who has had a long history of frequent pain, swelling and bleeding with his hemorrhoids. He had bulky hemorrhoidal columns on both the left and right side. He wanted to proceed with hemorrhoidectomy. He e understood the technique of the procedure as well as the risks, benefits, and alternatives. He was brought to the operating room and placed in prone alessia-knife position under general anesthesia via endotracheal tube. The buttocks were retracted with wide tape laterally. The perianal area was prepped and draped in the usual sterile fashion. A surgical time-out was done. The patient received Cefotan 2 g IV preoperatively External hemorrhoids and some prolapse on the posterior aspect of internal compo nent was seen. I infiltrated the perianal area with lidocaine 1%. I inserted the Johnathan Carreon retractor. I examined the anal canal circumferentially. Again he had multiple large hemorrhoidal columns, both internal external. There was 1 particular large column on the left posterior. I applied a Johns grasper on this to retract this into the field. I made a [id number] stitch at the pedicle. A significant bleeding from the hemorrhoidectomy site in view of the large hemorrhoid I proceeded to do the same procedure on the hemorrhoidal column on the left side. I retracted this with a Johns clamp. I made a zggshl-kv-[id number] stitch at its pedicle. I made an incision around this hemorrhoidal column to the perianal skin using blade 15. I excised this hemorrhoidal column above the plane of sphincters along this incision using scissors and closed the incision with a running chromic 3-0 stitch. Again multiple hemostatic [id number] sutures were placed for oozing areas. Had to do this many times include especially on some other residual hemorrhoids the area in view of oozing Once hemostasis was confirmed, I proceeded to observe for about a minute. There was no further bleeding and there appeared to be good hemostasis. I placed a rolled Gelfoam into the anal canal. I infiltrated the perianal area with Marcaine 0.5% for postop analgesia Again I examined around the Gelfoam and there was no significant bleeding seen. The procedure was then completed The patient tolerated procedure well. There were no immediate complications. Initial and final counts of sponges and instruments were correct. Estimated blood loss was about 200 cc The patient was extubated without difficulty and transferred to the recovery room with stable vital signs.
[2023-11-10] MEDS: oxyCODONE HCl Immed Release 5 MG TABLET 10 MG PO ×3 (13:15→23:29)
[2023-11-10] MEDS: Acetaminophen 1,000 MG/100 ML PIGGYBACK 400 MG IV ×2 (13:42→18:43)
--- NOTE | 2023-11-10 14:07 | P.HPGS_ITS ---
History of Present Illness History of Present Illness Date of Service: 11/11/23 Chief complaint: Residual hemorrhoidal skin tags Narrative: Art Ro is a 38 year old male underwent hemorrhoidectomy x2 columns today. He had large internal and external hemorrhoids. According to the anesthesiologist, he required a lot of narcotics intraoperatively. He has poor pain control postop here in the PACU. I am going to therefore admit him for postop pain He admits to marijuana use. He states he has allergies to Tylenol but this is actually more of a reaction with vomiting. Review of Systems Constitutional: Constitutional: Denies chills and Denies fever(s) ENT: Reports neck pain Cardiovascular: Cardiovascular: Denies chest pain Respiratory: Respiratory: Denies cough Gastrointestinal: Gastrointestinal: Denies abdominal pain Genitourinary: Genitourinary: Denies difficulty urinating Musculoskeletal: Musculoskeletal: Reports neck pain Psychiatric: Psychiatric: Reports anxiety [facility] Past Medical History Medical History (Updated 11/10/23 @ 09:43 by Teresa Carvalho RN) Neck pain Renal calculi Palpitations Internal and external bleeding hemorrhoids Skin growth New onset headache Hyperlipidemia GERD (gastroesophageal reflux disease) Migraine headache Anxiety Family History Family History Father CAD (coronary artery disease), Onset Age: 40 Substance use disorder Mother Mental health disorder Maternal Aunt Throat cancer Surgical History Surgical History (Updated 10/27/23 @ 09:54 by Melinda Eagle RN) Hx of cystoscopy Social History Social History Household Members: Family Household Members Other:: , 11 yo son, Housing: House Patient Tobacco Use Status: Never used Tobacco Tobacco use type: Cigarette Cigarettes Per Day: 6 Years Smoked: 2004 e-Cigarette/Vaping Use: Never Used Use of substances other than those prescribed or required for medical reasons: No Currently Displaying Signs/Symptoms of Drug Intoxication Withdrawal: No Have you been hit, kicked, punched, or otherwise hurt by someone within the past year? If so, by whom?: No Do you feel safe in your current relationship?: Yes Is there a partner from a previous relationship who is making you feel unsafe now?: No Are you made to feel afraid or neglected: No Are you DNR?: No Advance Directives: No Advance Directives Information Provided: Yes Advance Directives on File: No Do you have thoughts of harming others: None Do you have a plan to hurt others: No Plan Recently lost weight without trying: No How much weight loss: Not applicable Eating poorly because of decreased appetite: No Nutrition screen score: 0 Nutrition Risks: No Nutritional Risk Poor oral hygiene: No service: No Current occupational status: unemployed Current occupational exposures/hazards: No Cognitive needs: No Hearing needs: No Vision needs: No Meds Allergies Allergy/AdvReac Type Severity Reaction Status Date / Time acetaminophen [From Tylenol] AdvReac Nausea Verified 11/07/23 08:13 Active Medications: Current Medications Acetaminophen (Ofirmev) 1,000 mg in 100 mls @ 400 mls/hr IV Q6H [facility] Stop: 11/11/23 08:29 Ibuprofen (Ibuprofen 600 Mg Tablet) 600 mg PO Q6H PRN PRN Reason: Pain, Moderate(Pain Scale 4-6) Morphine Sulfate (Morphine Sulfate 4 Mg/Ml Cartridge) 3 mg IVPUSH Q3H PRN; Protocol PRN Reason: Pain, Severe (Pain Scale 7-10) Omeprazole (Omeprazole 20 Mg Capsule.Dr) 20 mg PO BID@0630,1630 [facility] Ondansetron HCl (Ondansetron Hcl 4 Mg/2 Ml Vial) 4 mg IVPUSH ONCE PRN PRN Reason: Nausea and Vomiting Ondansetron HCl (Ondansetron Hcl 4 Mg/2 Ml Vial) 4 mg IVPUSH Q6H PRN PRN Reason: Nausea Oxycodone HCl (Oxycodone Hcl Immed Release 5 Mg Tablet) 10 mg PO Q4H PRN PRN Reason: Pain, Moderate(Pain Scale 4-6) Sodium Chloride (0.9 % Sodium Chloride Flush 3 Ml Syringe) 3 ml IVFLUSH QSHIFT [facility] Home Medications Medication Instructions Recorded Confirmed Last Taken Type omeprazole 20 mg capsule,delayed 20 mg PO Q2D 11/10/23 11/10/23 Unknown History release Physical Exam Vital Signs: Vital Signs: Last Vital Signs Temp 97.0 F 11/10/23 12:36 Pulse 74 11/10/23 13:51 Resp 21 H 11/10/23 13:51 BP 101/55 L 11/10/23 13:51 Pulse Ox 100 11/10/23 13:51 O2 Del Method Room Air 11/10/23 13:51 O2 Flow Rate 2 11/10/23 13:36 BMI result Body Mass Index 31.7 Const: Other: Anxious General: comfortable and no acute distress Orientation/consciousness: patient oriented x3 Neck: Neck: Yes no lymphadenopathy Resp: Auscultation: clear to auscultation bilaterally Cardio: Rhythm: regular rhythm GI: Other: Hemorrhoidectomy site dry, packing in place Palpation (GI): Soft to palpation, nontender and no guarding Neuro: General: patient oriented x3 Assessment and Plan (1) Internal and external bleeding hemorrhoids: Status: Acute He had undergone to me x2 columns earlier today. He had large mixed hemorrhoids removed. He has poor pain control here the PACU. According to the anesthesiologist, he had required a lot of narcotic pain meds intraoperatively I will admit him for extended stay for IV pain medications. We will also add IV Tylenol. I explained to him the plan and he says he prefers to be admitted. He is hemodynamically stable. The patient says that he has always had low threshold for pain. He says that he remembers having tonsillectomy and requiring a lot of pain medications but he was much younger. Quality Stroke Does the patient have a stroke diagnosis?: No VTE Prior VTE?: No VTE Risk Level:: Medical - low VTE Device Contraindication: N/A - Device Ordered VTE Drug Contraindication: Treatment Not Indicated Procedures Date of Service Date of Service: 11/11/23
[2023-11-10] MEDS: Ibuprofen 600 MG TABLET PO ×2 (14:35→20:30)
[2023-11-10] MEDS: Morphine Sulfate 4 MG/ML CARTRIDGE 3 MG IVPUSH ×3 (15:16→22:10)
[2023-11-10] MEDS: 0.9 % Sodium Chloride Flush 3 ML SYRINGE IVFLUSH ×2 (17:16→20:07)
[2023-11-10] MEDS: Morphine Sulfate 4 MG/ML CARTRIDGE IVPUSH (17:59)
--- NOTE | 2023-11-10 18:15 | PHA.MEDREC ---
Pharmacy Consult ? Medication Reconciliation Pharmacy has completed the medication reconciliation with patient, confirmed he only takes atorvastatin daily and omeprazole every other day, pt stated he never picked up constipation meds and is no longer using proctosol.
[2023-11-10] MEDS: Docusate Sodium 100 MG CAPSULE PO (20:06)
[2023-11-11] VITALS: BP 121/93; PULSE 82; RESP 18; TEMP 36.6; O2SAT 98
[2023-11-11] MEDS: HYDROmorphone HCl 2 MG/ML VIAL IVPUSH ×5 (00:01→12:04)
--- NOTE | 2023-11-11 00:18 | PC.NURSE ---
Pt c/0 07/04 pain stating morphine is not working after morphine was increased to 3mg q 2hrs notified ordered dilaudid 2mg iv q3hr.Pt medicated with dilaudid 2mg iv at 0000.will continue to monitor.
[2023-11-11] MEDS: Acetaminophen 1,000 MG/100 ML PIGGYBACK 400 MG IV ×2 (01:18→06:28)
[2023-11-11 03:11] VITALS: BP 112/59; PULSE 59; RESP 18; TEMP 36.2; O2SAT 98
[2023-11-11] MEDS: Omeprazole 20 MG CAPSULE.DR PO (05:56)
[2023-11-11 08:00] VITALS: BP 122/92; TEMP 36.2; O2SAT 97
[2023-11-11] MEDS: Docusate Sodium 100 MG CAPSULE PO (08:32)
[2023-11-11] MEDS: 0.9 % Sodium Chloride Flush 3 ML SYRINGE IVFLUSH (08:33)
[2023-11-11] MEDS: oxyCODONE HCl Immed Release 5 MG TABLET 10 MG PO (08:35)
[2023-11-11] MEDS: ondansetron HCL 4 MG/2 ML VIAL IVPUSH (09:01)
[2023-11-11 09:44] VITALS: O2SAT 98
--- NOTE | 2023-11-11 09:47 | PM.PNGS ---
Subjective Subjective Date of Service: 11/16/23 Interval history: Says his pain is much better although still present States he vomited this morning after getting IV Tylenol Says he always has this reaction to Tylenol Denies BMs or bleeding Physical Exam Vital Signs: Vital Signs: Last Vital Signs Temp 97.2 F 11/11/23 08:00 Pulse 59 11/11/23 03:11 Resp 18 11/11/23 03:11 BP 122/92 H 11/11/23 08:00 Pulse Ox 98 11/11/23 09:44 O2 Del Method Room Air 11/11/23 09:44 O2 Flow Rate 2 11/10/23 13:36 BMI result Body Mass Index 33.7 Const: Other: Complains of pain so says this is much better Resp: Effort & Inspection: normal respiratory effort Cardio: Rate: regular rate GI: Other: Rectal exam - no perianal induration, cellulitis, or bleeding Palpation (GI): Soft to palpation Objective Data Active Medications Docusate Sodium (Docusate Sodium 100 Mg Capsule) 100 mg PO BID COUNT INCLUDES THE [facility] Last Admin: 11/11/23 08:32 Dose: 100 mg Documented By: JAK Hydromorphone HCl (Hydromorphone Hcl 2 Mg/Ml Vial) 2 mg IVPUSH Q3H PRN; Protocol PRN Reason: Pain, Severe (Pain Scale 7-10) Last Admin: 11/11/23 09:00 Dose: 2 mg Documented By: JAK Acetaminophen (Ofirmev) 1,000 mg in 100 mls @ 400 mls/hr IV Q6H COUNT INCLUDES THE [facility] Stop: 11/11/23 13:14 Last Infusion: 11/11/23 06:45 Dose: Infused Documented By: KAREN Ibuprofen (Ibuprofen 600 Mg Tablet) 600 mg PO Q6H PRN PRN Reason: Pain, Moderate(Pain Scale 4-6) Last Admin: 11/10/23 20:30 Dose: 600 mg Documented By: KAREN Omeprazole (Omeprazole 20 Mg Capsule.) 20 mg PO BID@0630,1630 COUNT INCLUDES THE [facility] Last Admin: 11/11/23 05:56 Dose: 20 mg Documented By: KAREN Ondansetron HCl (Ondansetron Hcl 4 Mg/2 Ml Vial) 4 mg IVPUSH Q8H PRN PRN Reason: Nausea Oxycodone HCl (Oxycodone Hcl Immed Release 5 Mg Tablet) 10 mg PO Q4H PRN PRN Reason: Pain, Moderate(Pain Scale 4-6) Last Admin: 11/11/23 08:35 Dose: 10 mg Documented By: JAK Sodium Chloride (0.9 % Sodium Chloride Flush 3 Ml Syringe) [facility] Last Admin: 11/11/23 08:33 Dose: 3 ml Documented By: JAK Procedures Date of Service Date of Service: 11/16/23 Progress Note: A&P Assessment and plan (1) Hemorrhoids: Status: Resolved Assessment and Plan: Status post hemorrhoidectomy, on extended stay for postop pain Pain much better but still present Responds well to Dilaudid Will re-evaluate later on Possible discharge if his pain is manageable On diet Time Spent With Patient Time: Total time managing care of this patient today ____ minutes. Quality Stroke Does the patient have a stroke diagnosis?: No VTE Prior VTE?: No VTE Risk Level:: Medical - low VTE Device Contraindication: N/A - Device Ordered VTE Drug Contraindication: Treatment Not Indicated
--- NOTE | 2023-11-11 11:41 | HO.POSTANES ---
Post Anesthesia Evaluation Post Anesthesia Evaluation Date of Service: 11/11/23 Vital Signs: Vital Signs Temp Pulse Resp BP Pulse Ox O2 Del Method 11/11/23 09:44 98 Room Air 11/11/23 08:00 97.2 F 122/92 H 97 Room Air 11/11/23 03:11 97.1 F 59 18 112/59 L 98 Room Air 11/11/23 00:00 97.8 F 82 18 121/93 H 98 Room Air Anesthesia: General Endotracheal-GETA Mental Status: Awake Pain Control: Satisfactory Nausea/Vomiting: None Hydration: Adequate Anesthesia-Related Issues: No Anes. Related Issues
--- NOTE | 2023-11-11 12:01 | PM.EVENT ---
Event Note Date of Service: 11/16/23 Event Note: says his pain continues to improve states he is ready to go home no bleeding stable VS tolerating diet has not passed packing yet looks well stable VS ok to dc home instructions reviewed ffup in office Time Spent With Patient Time: Total time managing care of this patient today ____ minutes.
--- NOTE | 2023-11-11 13:01 | MHC.CM.PN ---
PT REPORTS HE LIVES WITH HIS AND IS INDEPENDENT WITH CARE HE HAS NO DME AND NO HOME SERVICES HE DECLINES TO COMPLETE A HCP PCP: EVELIO TIWARI DCP: PT WILL DC HOME TODAY WITH NO SERVICES TO TRANSPORT
--- NOTE | 2023-11-11 13:22 | PC.NURSE ---
Discharge note: Pt alert and oriented x3. Pt medicated for pain with dilaudid 2mg with good effect. IV pulled and dressing in place. Discharge paperwork reviewed with pt. Pt verbalized understanding. Medications called into patients pharmacy by Dr. Westfall. Pt signed discharge paperwork. Pt discharged home with .
== END 2023-11-11 13:25 | disposition home or self-care (01) ==
LOC: HO.SSS 11:01 → HO.S3 16:42
PROVIDERS: PCP Internal Medicine; Visit Provider Surgery
PROC: (CPT 46260; principal; 2023-11-10 11:00)
DX: K64.8 Other hemorrhoids (principal); K64.4 Residual hemorrhoidal skin tags; F41.9 Anxiety disorder, unspecified; E78.5 Hyperlipidemia, unspecified; G47.30 Sleep apnea, unspecified; G43.909 Migraine, unspecified, not intractable, without status migrainosus; Z79.899 Other long term (current) drug therapy; Z87.442 Personal history of urinary calculi; F17.210 Nicotine dependence, cigarettes, uncomplicated
CPT/HCPCS: 46260; 88304; 88342; 88360; J0131; J1170; J2250; J2270; J2405; J2704; J2795; J3010

== ENCOUNTER → 2023-11-10 08:48 | Outpatient (BNV) | payer OTHER, SELFPAY | PROVIDERS: PCP Internal Medicine; Visit Provider Surgery | DX: K64.8 Other hemorrhoids (principal) | CPT/HCPCS: 46260; 99024; 99212; 99499 ==

== ENCOUNTER 2023-11-23 11:11 | Outpatient (AMB) | payer OTHER, SELFPAY ==
--- NOTE | 2023-11-23 11:15 | A.OFFVIS_ITS ---
Intake Vital Signs 11/23/23 11:21 Weight 187 lb BP 116/75 Blood Pressure Location Lt brachial Position Standing Pulse 109 H Intake Visit Reasons: S/P hemorrhoidectomy Intake Note: This patient presents for a post-op assessment status post hemorrhoidectomy. Pt c/o; reports open wound, reports pain, unable to sit. Street Superintendent Required: No Market Relationship Manager: Market Relationship Manager Present (Henri) Accompanied by: Self / Same As Patient Allergies acetaminophen [From Tylenol] Adverse Reaction (Verified 11/23/23 11:21) Nausea HPI S/P hemorrhoidectomy HPI Details He hadundergone hemorrhoidectomy last 11/10/2023. He tolerated procedure well. He complains of pain especially with bowel movements. He denies any bleeding. He feels that the sutures have ?rip? because of his bowel movements. [facility] Medical History (Updated 11/23/23 @ 11:45 by Samir Westfall MD) Internal and external bleeding hemorrhoids Neck pain Renal calculi Palpitations Skin growth New onset headache Hyperlipidemia GERD (gastroesophageal reflux disease) Migraine headache Anxiety Surgical History History of hemorrhoidectomy (~11/10/23) Hx of cystoscopy Family History Father CAD (coronary artery disease), Onset Age: 40 Substance use disorder Mother Mental health disorder Maternal Aunt Throat cancer Social History Household Members: Family Household Members Other:: , 11 yo son, Housing: House Patient Tobacco Use Status: Never used Tobacco Tobacco use type: Cigarette Cigarettes Per Day: 6 Years Smoked: 2004 e-Cigarette/Vaping Use: Never Used service: No Current occupational status: unemployed Current occupational exposures/hazards: No Cognitive needs: No Hearing needs: No Vision needs: No Review of Systems Const Denies chills and Denies fever(s) Card Denies chest pain, Denies dyspnea and Denies dyspnea on exertion Resp Denies cough, Denies dyspnea and Denies dyspnea on exertion GI Denies hematochezia and Denies change in bowel habits Denies hematuria and Denies difficulty urinating Musc Denies back pain and Denies limited range of motion Neuro Denies focal weakness and Denies convulsions Psych Denies depression and Denies mood swings Physical Exam Vital Signs: Last Vital Signs Pulse 109 H 11/23/23 11:21 BP 116/75 11/23/23 11:21 Const General: comfortable and no acute distress Resp Effort & Inspection: normal respiratory effort GI Other: Rectal exam shows the hemorrhoidectomy sites to be healing well, some residual edema but no bleeding, no induration, no discharge Assessment & Plan Assessment & Plan (1) Internal and external bleeding hemorrhoids: Code(s): K64.4 - Residual hemorrhoidal skin tags; K64.8 - Other hemorrhoids Plan: Status post hemorrhoidectomy. His incisions are healing well. His path report shows hemorrhoids with high-grade squamous intraepithelial lesion AIN II-III. Margins are free of dysplasia I explained to him the above pathology. I told him they would recommend follow- up anoscopy every 6 months for about 2 years from here on. He understands the plan well. Coding Level of Care Code Global (37903) Diagnoses Internal and external bleeding hemorrhoids K64.4; K64.8
[2023-11-23 11:21] VITALS: BP 116/75; PULSE 109
== END 2023-11-23 11:46 | disposition home or self-care (01) ==
PROVIDERS: PCP Internal Medicine; Visit Provider Surgery
DX: K64.4 Residual hemorrhoidal skin tags (principal); K64.8 Other hemorrhoids
CPT/HCPCS: 99024

== ENCOUNTER → 2023-11-23 11:11 | Outpatient (BNVA) | payer OTHER, SELFPAY | PROVIDERS: PCP Internal Medicine; Visit Provider Surgery | DX: K64.4 Residual hemorrhoidal skin tags (principal); K64.8 Other hemorrhoids | CPT/HCPCS: 99212 ==

== ENCOUNTER → 2023-12-20 10:57 | Outpatient (REF) | payer OTHER, SELFPAY | LOC: HO.SL 10:57 | PROVIDERS: PCP Internal Medicine; Visit Provider Internal Medicine | DX: G47.30 Sleep apnea, unspecified (principal) | CPT/HCPCS: 95806 ==

== ENCOUNTER → 2023-12-20 11:08 | Outpatient (BNV) | payer OTHER, SELFPAY | PROVIDERS: PCP Internal Medicine; Visit Provider Internal Medicine | DX: R06.83 Snoring (principal); R40.0 Somnolence | CPT/HCPCS: 95806 ==

== ENCOUNTER 2024-11-06 11:07 | Outpatient (AMB) | payer OTHER, SELFPAY ==
--- NOTE | 2024-11-06 11:09 | A.OFFPC_ITS ---
Vital Signs 11/06/24 11:10 Height 5 ft 7 in Weight 207 lb BMI 32.4 BP 110/70 Blood Pressure Location Lt brachial Position Sitting Respiration 18 Pulse 72 Pulse Source Pulse Oximeter Temp 97.9 F Temp Source Oral Pulse Oximetry (%) 99 Oxygen Delivery Method Room Air Intake Visit Reasons: Med review Intake Note: Pt is here today for a follow up visit. Pt states that he had multiple surgeries. Allergies acetaminophen [From Tylenol] Adverse Reaction (Verified 11/23/23 11:21) Nausea Medication List - Last Reconciled 11/06/24 by Lizett Roe MD atorvastatin 20 mg PO DAILY docusate sodium (Colace) 100 mg PO BID ibuprofen 600 mg PO Q6H PRN omeprazole 20 mg PO Q2D Tobacco use date assessed: 11/06/24 Dental Screening Dental Screen Date: 11/06/24 Did you have a dental visit in the last 12 months?: Yes Did you have a dental problem in the last 6 months where you did not have access to dental care?: No Was dental information given to patient?: Patient has dentist HPI Med review HPI Details Pt presents for f/u. Pt underwent multiple procedures for left-sided obstructing kidney stones :s/p L ureteroscopy, stone removal, stent placements for severe UPJ obstruction and pyeloplasty from January until May by Dr. Casey. Patient reports feeling very upset and depressed about multiple medical procedures. he has not been able to work for the last year and complains of insomnia worsening anxiety and depression but denies suicide or homicidal ideation. Patient has been overeating and gaining weight. [facility] Medical History (Updated 11/06/24 @ 13:05 by Lizett Roe MD) Hydronephrosis Gross hematuria Internal and external bleeding hemorrhoids Neck pain Renal calculi Palpitations Skin growth New onset headache Hyperlipidemia GERD (gastroesophageal reflux disease) Migraine headache Anxiety Surgical History History of pyeloplasty History of hemorrhoidectomy (~11/10/23) Hx of cystoscopy Family History Father CAD (coronary artery disease), Onset Age: 40 Substance use disorder Mother Mental health disorder Maternal Aunt Throat cancer Social History Household Members: Family Household Members Other:: , 11 yo son, Housing: House Patient Tobacco Use Status: Current everyday Tobacco user Tobacco use type: Cigarette Cigarettes Per Day: 6 Years Smoked: 2004 e-Cigarette/Vaping Use: Never Used service: No Current occupational status: unemployed Current occupational exposures/hazards: No Cognitive needs: No Hearing needs: No Vision needs: No Questionnaire PHQ-9 Over the last 2 weeks, how often have you been bothered by any of the following problems? 1. Little interest or pleasure in doing things: nearly every day 2. Feeling down, depressed, or hopeless: nearly every day 3. Trouble falling or staying asleep, or sleeping too much: nearly every day 4. Feeling tired or having little energy: nearly every day 5. Poor appetite or overeating: more than half the days 6. Feeling bad about yourself - or that you are a failure or have let yourself or your family down: more than half the days 7. Trouble concentrating on things, such as reading the newspaper or watching television: not at all 8. Moving or speaking so slowly that other people could have noticed. Or the opposite - being so fidgety or restless that you have been moving around a lot more than usual: several days 9. Thoughts that you would be better off or of hurting yourself in some way: not at all Total score: 17 Depression Screening Interpretation: Positive (Patient declined counseling, started sertraline 50 mg daily,) Depression Screening Follow-up: Existing cond ition and New Medication prescribed Depression Screening Done: Yes 16553 - PHQ-9 Billing: Yes Source: Developed by Drs. Chris Santos, Moira Ontiveros, Adebayo Trevizo and colleagues, with an educational adolfo from [employer]. Thrive Questionnaire Date Thrive assessed: 11/06/24 I am a: Patient What is your living situation today?: I have a steady place to live Within the past 12 months, did the food you bought not last and you didn't have the money to get more?: Never true Within the past 12 months, did you worry whether your food would run out before you got money to buy more?: Never true Do you have trouble paying for medicines?: No Do you have trouble getting transportation to medical appointments?: No Do you have trouble paying your heating and electricity bill?: No Do you have trouble taking care of your child, family member or friend?: No Do you have trouble with day-to-day activities such as bathing, preparing meals, shopping, managing finances, etc.?: No Are you currently unemployed and looking for a job?: Yes Are you interested in more education?: No Please select the resources that you would like help with: None Currently or been in a relationship where the following occur: No concerns reported THRIVE Score: 0 AUDIT C Alcohol Use Questionnaire (AUDIT-C) 1. How often do you have a drink containing alcohol?: Never 3. How often do you have six or more drinks on one occasion?: Never Total Score: 0 ALIX-7 AMB Questionnaire ALIX-7 Date ALIX - 7 assessed: 11/06/24 Feeling nervous, anxious, or on edge: 1 = Several days Not being able to stop or control worryin = Several days Worrying too much about different things: 1 = Several days Trouble relaxin = Several days Being so restless that it is hard to sit still: 1 = Several days Becoming easily annoyed or irritable: 0 = Not at all Feeling afraid as if something awful might happen: 1 = Several days Total ALIX-7 score (0-4 normal; 5-9 mild; 10-14 moderate; 15-21 severe): 6 Source: Developed by Drs. Chris Santos, Moira Ontiveros, Adebayo Trevizo and colleagues, with an educational adolfo from [employer]. ALIX-7 Assessment Billing ALIX-7 Assessment Tool: ALIX-7 Assessment 68621 Review of Systems Const All systems reviewed & are unremarkable except as noted in HPI and below Reports no additional complaints Eyes Reports no additional complaints ENT Reports no additional complaints Card Reports no additional complaints Resp Reports no additional complaints GI Reports no additional complaints Reports no additional complaints Physical exam (Primary Care) Vital Signs: Last Vital Signs Temp 97.9 F 11/06/24 11:10 Pulse 72 11/06/24 11:10 Resp 18 11/06/24 11:10 BP 110/70 11/06/24 11:10 Pulse Ox 99 11/06/24 11:10 Oxygen Delivery Method Room Air 11/06/24 11:10 BMI result Body Mass Index 32.4 Tobacco/Smoking Status: Tobacco use Status Tobacco use date assessed 11/06/24 11/06/24 11:12 Patient Tobacco Use Status Current everyday Tobacco 11/06/24 11:28 Tobacco use type Cigarette 11/06/24 11:12 e-Cigarette/Vaping Use Never Used 11/06/24 11:12 PHQ-9: PHQ-9 Score PHQ-9: Total score 17 11/06/24 11:12 Depression Screening Interpretation: Positive (Patient declined counseling, started sertraline 50 mg daily,) Depression Screening Follow-up: Existing condition and New Medication prescribed Thrive Assessment: Date of Thrive Assessment Date Thrive assessed 11/06/24 11/06/24 11:15 Currently or been in a relationship where the following occur: No concerns reported Const General: no acute distress HENMT Head: Yes normal to inspection Mouth: Normal oral and palatal mucosa present Eyes General: appearance normal, both eyes and all related structures Resp Effort & Inspection: normal respiratory effort Auscultation: clear to auscultation bilaterally Cardio Rhythm: regular rhythm Heart sounds: S1 normal heart sound present and S2 normal heart sound present GI Inspection: Yes normal to inspection Palpation (GI): Soft to palpation Percussion: Yes normal to percussion Auscultation: normal bowel sounds Coding Level of Care Code Est Pt Level 4 (20124) Diagnoses Nephrolithiasis N20.0 Hyperlipidemia E78.5 Anxiety and depression F41.9; F32.A Additional Codes ALIX-7 Assessment Billing - ALIX-7 Assessment Tool: ALIX-7 Assessment 86834 ([id number]) PHQ-9 - 89428 - PHQ-9 Billing: Yes ([id number]) Assessment & Plan Assessment & Plan (1) Nephrolithiasis: Comment: since 21 year old, s/p L ureteral stent 03/15, hx of UPJ obstruction, stone removal, s/p multiple stents, s/p left robotic pyeloplasty May 2024 f/u Dr. Casey Code(s): N20.0 - Calculus of kidney Category: Medical Plan: Obtain renal ultrasound to evaluate for nephrolithiasis and hydronephrosis (2) Hyperlipidemia: Code(s): E78.5 - Hyperlipidemia, unspecified Category: Medical Plan: Restart atorvastatin (3) Anxiety and depression: Code(s): F41.9 - Anxiety disorder, unspecified; F32.A - Depression, unspecified Category: Medical Plan: Stress management mindfulness discussed with the patient. He declined counseling. Sertraline 50 mg daily will be started, patient will follow-up in 1 month Orders: Orders UA w Microscopic Today N23 - Unspecified renal colic US renal BI Today N23 - Unspecified renal colic Comprehensive Met. Panel Today N23 - Unspecified renal colic Medications: Refilled atorvastatin 20 mg PO DAILY 90 tabs 3RF Discontinued oxycodone Partial Fill upon patient request. Discontinued Reason: Doctor's Order 5 mg PO Q4H PRN 30 tabs 0RF pain
[2024-11-06 11:10] VITALS: BP 110/70; PULSE 72; RESP 18; TEMP 36.6; O2SAT 99; BMI 32.4
--- OUTSIDE RECORDS SUMMARY | 2024-11-06 13:01 | XMS_ITS | Clinical Summary ---
Author Organization [facility] Address [address] [place] [address] Phone Care Team Providers Care Access Control Specialist Name Role Phone Lizett Roe MD Primary Care Provider [phone] Allergies Active Allergy Reactions Criticality Noted Date Comments Acetaminophen Nausea And Vomiting Low 07/31/2024 Medications omeprazole (PriLOSEC) [address] capsule Take 1 capsule (20 mg total) by mouth 1 (one) time each day. Active nicotine (NICODERM CQ) 14 mg/[address] 14 mg on the skin 1 (one) time each day at the same time. 04/03/2022 Active Encounters Date Type Department Care Team Description 08/09/2024 10:30 AM EST - 08/09/2024 12:00 PM EST Surgery [facility] [place] [address] [place] [phone] Rafael Casey MD CYSTOSCOPY,LEFT STENT REMOVAL, LEFT RETROGRADE PYELOGRAM [[id number] (CPT??)] 08/09/2024 10:12 AM EST Anesthesia Event [facility] OR [address] [place] [phone] John Barraza MD 08/09/2024 9:04 AM EST - 08/09/2024 12:08 PM EST Hospital Encounter [facility] OR [address] [place] [phone] Rafael Casey MD Discharge Disposition: Home or Self Care 08/09/2024 7:20 AM EST - 08/09/2024 11:59 PM EST Hospital Encounter [facility] Xray [address] [place] [phone] Pain Discharge Disposition: Home or Self Care from Last 3 Months Surgical History Surgery Date Site/Laterality Comments LITHOTRIPSY MULTIPLE SURGERIES PYLOROPLASTY Left TONSILLECTOMY AND ADNOIDS REMOVED Medical History Medical History Date Comments Hyperlipidemia GERD (gastroesophageal reflux disease) Chronic kidney disease Kidney stones Anxiety Motion sickness Social History Tobacco Use Types Packs/Day Years Used Date Smoking Tobacco: Every Day Cigarettes 0.3 19.1 Started: 2005 Passive Smoke Exposure: Current Smokeless Tobacco: Never Tobacco Cessation:Ready to Q uit: Not Asked; Counseling Given: Not Answered Alcohol Use Standard Drinks/Week Comments Never 0 (1 standard drink = 0.6 oz pur e alcohol) Sex and Gender Information Value Date Recorded Sex Assigned at Male 08/09/2024 9:03 AM EST Legal Sex Male 4:46 AM EST Gender Identity Male 08/09/2024 9:03 AM EST Sexual Orientation Straight 08/09/2024 9: 03 AM EST Obstetrics History Last Filed Vital Signs Vital Sign Reading Time Taken Comments Blood Pressure 118/70 08/09/2024 11:39 AM EST Pulse 72 08/09/2024 11:39 AM EST Temperature 36.5 ??C (97.7 ??F) 08/09/2024 11:[address] Respiratory Rate 18 08/09/2024 11:39 AM EST Oxygen Saturation 98% 08/09/2024 11:39 AM EST Inhaled Oxygen Concentration - - Weight 88.5 kg (195 lb) 07/31/2024 10:00 AM EST Height 167.6 cm (5' 6 ) 07/31/2024 10:00 AM EST Body Mass Index 31.47 07/31/2024 10:00 AM EST Plan of Treatment Health Maintenance Due Date Last Done Comments Pneumococcal Vaccine: Pediatrics (0 to 5 Years) and At-Risk Patients (6 to 64 Years) (1 of 2 - PCV) 1989 Hepatitis B Vaccines (1 of 3 - 19+ 3-dose series) 2002 Cholesterol Screening (Lipid Panel) 08/28/2022 Depression Screening 08/28/2022 HIV Screening 08/28/2022 Hepatitis C Screening 08/28/2022 Social Influencers of Health Screening 08/28/2022 COVID-19 Vaccine ( season) 2024 Influenza Vaccine (#1) 2024 , 06/08/2019, 07/13/2016, Additional history exists DTaP,Tdap,and Td Vaccines (2 - Td or Tdap) 09/14/2031 09/14/2021 HIB Vaccines Aged Out No longer eligi ble based on patient's age to complete this topic HPV Vaccines Aged Out No longer eligi ble based on patient's age to complete this topic Hepatitis A Vaccines Aged Out No long er eligible based on patient's age to complete this topic IPV Vaccines Aged Out No longer eligi ble based on patient's age to complete this topic MMR Vaccines Aged Out No longer eligi ble based on patient's age to complete this topic Meningococcal ACWY Vaccine Aged Out N o longer eligible based on patient's age to complete this topic RSV Immunization Patients Under 20 months Aged Out No longer eligible based on patient's age to complete this topic Varicella Vaccines Aged Out No longer eligible based on patient's age to complete this topic Procedures Procedure Name Priority Date/Time Associated Diagnosis Comments XR UROGRAM RETROGRADE Routine 08/09/2024 10:33 AM EST Pain TH AN LMA(NO CHARGE) Routine 08/09/2024 10:29 AM EST LA CYSTOURETHROSCOPY WITH INSERTION INDWELLING URETERAL STENT 08/09/2024 10:12 AM EST Obstruction of left ureteropelvic junction (UPJ) Case Notes C-ARM Special Needs C-ARM from Last 3 Months Results * XR Urogram Retrograde (08/09/2024 10:33 AM EST) Anatomical Region Laterality Modality Body Radio Fluoroscop y 08/09/2024 10:5 9 AM EST Narrative 08/09/2024 10:59 AM EST Fluoroscopic spot radiographs obtained during a left endourologic procedure are submitted. No radiologist consultation was requested or provided during this procedure and there is no radiologist professional charge. This report is generated for documentation purposes only. The dose-area product for this procedure was 0.3696 Gy*cm2. PQRI CPT II G9500 -------- FINAL REPORT -------- Dictated By: Neftaly Jama Dictated Date: 08/09/2024 10:59 ET Assigned Physician: Neftaly Jama Reviewed and Electronically Signed By: Neftaly Jama Signed Date: 08/09/2024 10:59 ET Workstation ID: [id number] Transcribed By: Self Edit Transcribed Date: 08/09/2024 10:59 ET Procedure Note Neftaly Jama MD - 08/09/2024 Fluoroscopic spot radiographs obtained during a left endourologicprocedure are submitted. No radiologist consultation was requested orprovided during this procedure and there is no radiologist professionalcharge. This report is generated for documentation purposes only. The dose-area product for this procedure was 0.3696 Gy*cm2. PQRI CPT II G9500 -------- FINAL REPORT -------- Dictated By: Neftaly Jama Dictated Date: 08/09/2024 10:59 ET Assigned Physician: Neftaly Jama Reviewed and Electronically Signed By: Neftaly Jama Signed Date: 08/09/2024 10:59 ET Workstation ID: [id number] Transcribed By: Self Edit Transcribed Date: 08/09/2024 10:59 ET Rafael Casey MD IMG FLUOROSCOPY PROCEDURES Ashley l Result * TH AN LMA(NO CHARGE) (08/09/2024 10:29 AM EST) Kaylee Pleitez CRNA - 08/09/2024 10:29 AM EST Kaylee Villa CRNA ? 08/09/2024 10:29 AM General Information and Staff Patient location during procedure: OR Resident/GLASS INSTALLER: Kaylee Villa CRNA Performed: resident/JHONNY/CAA Performed by: Kaylee Villa CRNA Authorized by: John Barraza MD ?? Intubation Airway not difficult Urgency: elective Final Airway Details Number of attempts at approach: 1 Number of other approaches attempted: 1Final airway type: LMA Indications and Patient Condition Indications for airway management: anesthesia and airway protection Spontaneous ventilation: present Sedation level: Yes Preoxygenated: yes Soft Tissue Damage: No Dentition Unchanged: Yes Patient position: sniffing MILS maintained throughout Mask difficulty assessment: 0 - not attempted us John Barraza MD ANESTHESIA ORDERABLES Final Re sult from Last 3 Months Insurance [facility] [employer] [address] Advance Directives * Full Code - Default (Latest Code Status on File) Date Activated Date Inactivated Comments 08/09/2024 10:52 AM 08/09/2024 2:19 PM This is o rder is used when code status has not been discussed with the patient, or code status is otherwise unknown/unconfirmed To update the patient's code status, place a code status order. Do not modify or discontinue any currently active code status orders. Care Teams Access Control Specialist Relationship Specialty Start Date End Date Lizett Roe MD [address] [place] [address] PCP - General 05/14/24
== END 2024-11-06 12:24 | disposition home or self-care (01) ==
PROVIDERS: PCP Internal Medicine; Visit Provider Internal Medicine
DX: N20.0 Calculus of kidney (principal); E78.5 Hyperlipidemia, unspecified; F41.9 Anxiety disorder, unspecified; F32.A Depression, unspecified

== ENCOUNTER 2024-11-06 11:07 | Outpatient (REF) | payer OTHER, SELFPAY ==
--- OUTSIDE RECORDS SUMMARY | 2024-11-06 13:57 | XMS_ITS | Clinical Summary ---
Author Organization [facility] Address [address] [place] [address] Phone Care Team Providers Care Bicycle Fitter Name Role Phone Lizett Roe MD Primary Care Provider [phone] Allergies Active Allergy Reactions Criticality Noted Date [...] EST - 08/09/2024 12:00 PM EST Surgery [facility] OR [address] [place] [phone] Rafael Casey MD CYSTOSCOPY,LEFT STENT REMOVAL, LEFT RETROGRADE PYELOGRAM [[id number] (CPT??)] 08/09/2024 10:12 AM EST Anesthesia Event [facility] OR [address] [place] [phone] John Barraza MD 08/09/2024 9:04 AM EST - 08/09/2024 12:08 PM EST Hospital Encounter [facility] OR [address] [place] [phone] Rafael Casey MD Discharge Disposition: Home or Self Care 08/09/2024 7:20 AM EST - 08/09/2024 11:59 PM EST Hospital Encounter [facility] Xray [address] [place] [phone] Pain Discharge Disposition: Home or Self Care [...] Health Maintenance Due Date Last Done Comments Hepatitis B Vaccines (1 of 3 - 19+ 3-dose series) 2002 Pneumococcal Vaccine: Pediatrics (0 to 5 Years) and At-Risk Patients (6 to 64 Years) (1 of 2 - PCV) 2002 Cholesterol Screening (Lipid Panel) 08/28/2022 Depression [...] patient's age to complete this topic Meningococcal B Vacine Aged Out No lo nger eligible based on patient's age to complete [...] LMA(NO CHARGE) Routine 08/09/2024 10:29 AM EST [place] CYSTOURETHROSCOPY WITH INSERTION INDWELLING URETERAL STENT 08/09/2024 [...] Signed Date: 08/09/2024 10:59 ET Workstation ID: [id number] Transcribed By: Self Edit Transcribed Date: 08/09/2024 [...] Signed Date: 08/09/2024 10:59 ET Workstation ID: [id number] Transcribed By: Self Edit Transcribed Date: 08/09/2024 10:59 ET Rafael Casey MD IMG FLUOROSCOPY PROCEDURES Ashley l Result * TH AN LMA(NO CHARGE) (08/09/2024 10:29 AM EST) Kaylee Pleitez CRNA - 08/09/2024 10:29 AM EST Kaylee Villa CRNA ? 08/09/2024 10:29 AM General Information and Staff Patient location during procedure: OR Resident/BRICK KILN WORKER: Kaylee Villa CRNA Performed: resident/BRICK KILN WORKER/CAA Performed by: Kaylee Villa CRNA Authorized by: [...] Re sult from Last 3 Months Insurance [facility] PLAN Advance Directives * Full Code - Default [...] currently active code status orders. Care Teams Bicycle Fitter Relationship Specialty Start Date End Date Lizett Roe MD [address] [facility] [place] [phone] PCP - General 05/14/24
[2024-11-06 16:16] LABS: Appearance Urine Clear; Color Urine Yellow; Glucose Urine UA Negative (Negative); Leukocyte Esterase Urine Negative (Negative); Nitrite Urine Negative (Negative); Urine Blood Negative (Negative); Urine Ketones Negative (Negative); Urine Protein Negative (Neg-Trace)
[2024-11-06 16:21] LABS: Bacteria Urine None Seen (None Seen); Hyaline Casts Urine 0-2 /LPF (0-2); RBC Urine 0-2 /HPF (0-2); Squamous Epithelial Cell Urine 0-2 /HPF (0-2); WBC Urine 0-5 /HPF (0-5)
[2024-11-06 16:45] LABS: Alanine Aminotransferase 22 U/L (0-40); Albumin Level 4.5 g/dL (3.5-5.0); Alkaline Phosphatase 55 U/L (39-117); Anion Gap 13 (12-20); Aspartate Amino Transferase 22 U/L (5-37); Bilirubin Total 0.4 mg/dL (0.0-1.0); Blood Urea Nitrogen 14 mg/dL (9-16); Calcium 9.2 mg/dL (8.4-10.2); Carbon Dioxide 24 mmol/L (22-29); Chloride 110 mmol/L (96-108); Estimated Glomerular Filt Rate > 60; Glucose Random 83 mg/dL (60-115); Potassium 4.7 mmol/L (3.3-5.1); Sodium 142 mmol/L (135-145); Total Protein 7.6 g/dL (6.5-8.0)
== END 2024-11-06 11:08 | disposition home or self-care (01) ==
LOC: HO.HMGCLDS 11:07
PROVIDERS: PCP Internal Medicine; Visit Provider Internal Medicine
DX: N23 Unspecified renal colic (principal); N20.0 Calculus of kidney; E78.5 Hyperlipidemia, unspecified; F41.9 Anxiety disorder, unspecified; F32.A Depression, unspecified
CPT/HCPCS: 36415; 80053; 81001; 96127; 99212

== ENCOUNTER 2024-11-07 12:24 | Outpatient (REF) | payer OTHER, SELFPAY ==
--- NOTE | ~2024-11-07 | US_ITS ---
EXAMINATION: US KIDNEY BILATERAL HISTORY: N23 - Unspecified renal colic TECHNIQUE: Real-time grayscale ultrasound imaging of the kidneys was performed and images were reviewed. COMPARISON: There are no prior studies for comparison. FINDINGS: Right kidney: The right kidney measures 10.0 x 5.6 x 6.0 cm. There is renal cortical thinning. There is increased echogenicity of the renal pyramids, suggestive of medullary nephrocalcinosis. There are no masses. There is no hydronephrosis. There is a 3 mm nonobstructing calculus at the lower pole. Left Kidney: The left kidney measures 11.1 x 6.0 x 4.9 cm. There is renal cortical thinning. There is increased echogenicity of the renal pyramids, suggestive of medullary nephrocalcinosis. There are no masses. There is no hydronephrosis or renal calculi. US/US renal BI IMPRESSION: Bilateral renal cortical thinning. Findings suggestive of bilateral medullary nephrocalcinosis. 3 mm nonobstructing calculus at the lower pole of the right kidney. Electronically signed by: Chris Mobley MD 11/07/2024 01:00 PM RHONDA
--- OUTSIDE RECORDS SUMMARY | 2024-11-07 12:36 | XMS_ITS | Clinical Summary ---
Author Organization [facility] Address [address] [place] [address] Phone Care Team Providers Care Director Industrial Museum Name Role Phone Lizett Roe MD Primary Care Provider [phone] Allergies Active Allergy Reactions Criticality Noted Date [...] - 08/09/2024 12:00 PM EST Surgery [facility] OR [address] [place] [phone] Rafael Casey MD CYSTOSCOPY,LEFT STENT REMOVAL, LEFT RETROGRADE PYELOGRAM [[id number] (CPT??)] 08/09/2024 10:12 AM EST Anesthesia Event [facility] OR [address] [place] [phone] John Barraza MD 08/09/2024 9:04 AM EST - 08/09/2024 12:08 PM EST Hospital Encounter [facility] OR [address] [place] [phone] Rafael Casey MD Discharge Disposition: Home or Self Care 08/09/2024 7:20 AM EST - 08/09/2024 11:59 PM EST Hospital Encounter [facility] Xray [address] [place] [phone] Pain Discharge Disposition: Home or Self Care [...] LMA(NO CHARGE) Routine 08/09/2024 10:29 AM EST [place] CYSTOURETHROSCOPY WITH INSERTION INDWELLING URETERAL STENT 08/09/2024 [...] Signed Date: 08/09/2024 10:59 ET Workstation ID: [id number] Transcribed By: Self Edit Transcribed Date: 08/09/2024 [...] -------- FINAL REPORT -------- Dictated By: Neftaly Jaam Dictated Date: 08/09/2024 10:59 ET Assigned Physician: Neftaly Jama Reviewed and Electronically Signed By: Neftaly Jama Signed Date: 08/09/2024 10:59 ET Workstation ID: [id number] Transcribed By: Self Edit Transcribed Date: 08/09/2024 10:59 ET Rafael Casey MD IMG FLUOROSCOPY PROCEDURES Ashley l Result * TH AN LMA(NO CHARGE) (08/09/2024 10:29 AM EST) Kaylee Pleitez CRNA - 08/09/2024 10:29 AM EST Kaylee Villa CRNA ? 08/09/2024 10:29 AM General Information and Staff Patient location during procedure: OR Resident/THEORETICAL PHYSICIST: Kaylee Villa CRNA Performed: resident/THEORETICAL PHYSICIST/CAA Performed by: Kaylee Villa CRNA Authorized by: [...] Re sult from Last 3 Months Insurance [facility] PLAN Advance Directives * Full Code - [...] currently active code status orders. Care Teams Director Industrial Museum Relationship Specialty Start Date End Date Lizett Roe MD [address] [place] [phone] PCP - General 05/14/24
== END 2024-11-07 12:25 | disposition home or self-care (01) ==
LOC: HO.HMGCX 12:24
PROVIDERS: PCP Internal Medicine; Visit Provider Internal Medicine
DX: N23 Unspecified renal colic (principal)
CPT/HCPCS: 76775

== ENCOUNTER → 2024-11-07 12:26 | Outpatient (BNV) | payer OTHER, SELFPAY | PROVIDERS: PCP Internal Medicine; Visit Provider Radiology Diagnostic Radiology | DX: N20.0 Calculus of kidney (principal) | CPT/HCPCS: 76775 ==

== ENCOUNTER 2024-11-20 09:39 | Outpatient (AMB) | payer OTHER, SELFPAY ==
--- NOTE | 2024-11-20 09:40 | A.OFFVIS_ITS ---
Intake Visit Reasons: hematuria Intake Note: Patient is present for HEMATURIA Urology Medication:NONE Antibiotic Allergy:NONE Blood Thinner:NONE TODAY'S PVR:18ML'S Leather Staker Required: No Allergies acetaminophen [From Tylenol] Adverse Reaction (Verified 11/20/24 09:41) Nausea HPI Comments Details: Art is a pleasant male. He is a patient of Dr. Roe. He seen for the following urologic issues - nephrolithiasis Longstanding Recent renal ultrasound with Medullary calcinosis 3 mm stone right side Recommend six-month follow-up renal ultrasound and repeat Urorisk Nephrolithiasis Longstanding over 30 stones Most recent intervention 06/18 with WNEU Required PCN Developed proximal left stricture after ureteroscopy. Required pyeloplasty procedure 06/18. Had been informed had oxalate stones [facility] Medical History Hydronephrosis Gross hematuria Internal and external bleeding hemorrhoids Neck pain Renal calculi Palpitations Skin growth New onset headache Hyperlipidemia GERD (gastroesophageal reflux disease) Migraine headache Anxiety Surgical History History of pyeloplasty History of hemorrhoidectomy (~11/10/23) Hx of cystoscopy Family History Father CAD (coronary artery disease), Onset Age: 40 Substance use disorder Mother Mental health disorder Maternal Aunt Throat cancer Social History Household Members: Family Household Members Other:: , 11 yo son, Housing: House Patient Tobacco Use Status: Current everyday Tobacco user Tobacco use type: Cigarette Cigarettes Per Day: 6 Years Smoked: 2004 e-Cigarette/Vaping Use: Never Used service: No Current occupational status: unemployed Current occupational exposures/hazards: No Cognitive needs: No Hearing needs: No Vision needs: No Review of Systems Const Denies chills and Denies fever(s) Card Reports no additional complaints and Denies syncope Resp Denies cough GI Denies abdominal pain and Denies heartburn Reports as per HPI and Denies change in libido Neuro Denies syncope Psych Denies change in libido Endo Denies change in libido Physical Exam Const General: cooperative, healthy appearing, comfortable and no acute distress Orientation/consciousness: patient oriented x3 HEENT Face and sinus: Yes normal facial exam Mouth: moist mucous membranes Neck Neck: Yes normal visual inspection, Yes full ROM and Yes trachea midline Chest Chest palpation & inspection: normal inspection of the chest Resp Effort & Inspection: normal respiratory effort, able to speak in complete sentences and no respiratory distress GI Inspection: Yes normal to inspection Back/Spine/Pelvis Cervical Spine: normal cervical lordosis Thoracic/Lumbar Spine: thoracic and lumbar spine normal to inspection Skin General skin exam: no rashes or lesions noted Neuro General: patient oriented x3, gait normal, tone normal and moves all extremities Extrem General: Yes normal to inspection and Yes capillary refill normal Office Procedures Post Void Residual Post Residual Void Post Void Residual (PVR): 18 11216-Ybts Void Residual by ultrasound Results AMB Urinalysis, Automated UA Leukoctes 0 Caterina/uL Last Edit by Miller Ocampo CCM on 11/20/24 10:03 UA Nitrite Negative Last Edit by Miller Ocampo [facility] on 11/20/24 10:03 UA Urobilinogen 0.2 mg/dL Last Edit by Miller Ocampo CCM on 11/20/24 10:0 3 UA Protein 30 mg/dL Last Edit by Miller Ocampo [facility] on 11/20/24 10:03 UA pH 6.0 Last Edit by Miller Ocampo [facility] on 11/20/24 10:03 UA Blood 0 Jose Maria/uL Last Edit by Miller Ocampo CCM on 11/20/24 10:03 UA Specific [place] 1.025 Last Edit by HAIDER Swift on 11/20/24 10: 03 UA Ketone Negative Last Edit by Miller Ocampo [facility] on 11/20/24 10:03 UA Bilirubin 1 mg/dL Last Edit by Miller Ocampo CCM on 11/20/24 10:03 UA Glucose 0 mg/dL Last Edit by Miller Ocampo [facility] on 11/20/24 10:03 Assessment & Plan Assessment & Plan (1) Nephrolithiasis: Comment: since 21 year old, s/p L ureteral stent 03/15, hx of UPJ obstruction, stone removal, s/p multiple stents, s/p left robotic pyeloplasty May 2024 f/u Dr. Casey Code(s): N20.0 - Calculus of kidney Category: Medical Plan Six-month follow-up renal ultrasound with urorisk Orders: Orders US renal BI 6 Months N20.0 - Calculus of kidney AMB Urinalysis Automated Today Z13.9 - Encounter for screening, unspecified URORISK Today N20.0 - Calculus of kidney Patient Instructions: This note is constructed using voice recognition software. While every effort has been made to ensure accuracy chalk molding machine operator errors may have been included. Imaging studies, laboratory and physical exam results were discussed and reviewed in detail. No major barriers to patient understanding were identified. An opportunity to ask questions regarding the treatment plan was provided. All questions were answered. The patient expressed understanding and agreement with the above treatment plan. The patient is aware they should contact our office by phone for worsening of their current condition or the appearance of new urologic symptoms. Compliance is encouraged with any medications and followup testing that is ordered. It is a privilege to participate in the urologic care of your patient. If you have any questions or concerns regarding treatment for the above conditions, or other urologic issues, please do not hesitate to contact me. The office telephone contact is [phone]. Sincerely, Dr Victor M Alexander MD, [facility] - Urology Compassionate Specialist Care for the Genitourinary System Coding Level of Care Code New Pt Level 4 (47406) Diagnoses Nephrolithiasis N20.0 CPT Codes Post Residual Void - PVR CPT Code: 53952-Rtin Void Residual by ultrasound ([id number])
--- OUTSIDE RECORDS SUMMARY | 2024-11-20 11:03 | XMS_ITS | Clinical Summary ---
Author Organization [facility] Address [address] [place] [address] Phone Care Team Providers Care Checker And Packer Name Role Phone Lizett Roe MD Primary Care Provider Allergies Active Allergy Reactions Criticality Noted Date Comments Acetaminophen Nausea And Vomiting Low 07/31/2024 Medications omeprazole (PriLOSEC) [address] capsule Take 1 capsule (20 mg total) by mouth 1 (one) time each day. Active nicotine (NICODERM CQ) 14 mg/[address] 14 mg on the skin 1 (one) time each day at the same time. 04/03/2022 Active Surgical History Surgery Date Site/Laterality Comments LITHOTRIPSY MULTIPLE SURGERIES PYLOROPLASTY Left TONSILLECTOMY AND ADNOIDS REMOVED Medical History Medical History Date Comments Hyperlipidemia GERD (gastroesophageal reflux disease) Chronic kidney disease Kidney stones Anxiety Motion sickness Social History Tobacco Use Types Packs/Day Years Used Date Smoking Tobacco: Every Day Cigarettes 0.3 19.2 Started: 2006 Passive Smoke Exposure: Current Smokeless Tobacco: Never [...] on patient's age to complete this topic Insurance [facility] PLAN Advance Directives * Full Code [...] currently active code status orders. Care Teams Checker And Packer Relationship Specialty Start Date End Date Lizett Roe MD [address] [place] [address] PCP - General 05/14/24
== END 2024-11-20 10:18 | disposition home or self-care (01) ==
PROVIDERS: PCP Internal Medicine; Visit Provider Urology
DX: N20.0 Calculus of kidney (principal); Z13.9 Encounter for screening, unspecified
CPT/HCPCS: 99204

== ENCOUNTER → 2024-11-20 09:39 | Outpatient (BNVA) | payer OTHER, SELFPAY | PROVIDERS: PCP Internal Medicine; Visit Provider Urology | DX: N20.0 Calculus of kidney (principal) | CPT/HCPCS: 51798; 81003; 99202 ==

== ENCOUNTER 2025-05-13 08:00 | Outpatient (AMB) | payer OTHER, SELFPAY ==
--- OUTSIDE RECORDS SUMMARY | 2025-05-13 08:02 | XMS_ITS | Clinical Summary ---
Author Organization [facility] Address [address] [place] [address] Phone Care Team Providers Care Home Economist Name Role Phone Lizett Roe MD Primary Care Provider [phone] Allergies Active Allergy Reactions Criticality Noted Date [...] Date Smoking Tobacco: Every Day Cigarettes 0.3 19.6 Started: 2006 Passive Smoke Exposure: Current Smokeless [...] 70 08/09/2024 11:39 AM EST Temperature 36.5 C (97.7 F) 08/09/2024 11:39 AM EST Respiratory Rate 18 08/09/2024 11:39 AM EST [...] 5 Years) and At-Risk Patients (6 to 49 Years) (1 of 2 - PCV) 2002 Cholesterol Screening (Lipid Panel) 08/28/2022 HIV Screening 08/28/2022 Hepatitis C Screening 08/28/2022 Social Influencers of Health Screening 08/28/2022 COVID-19 Vaccine ( season) 2024 Depression Screening 09/25/2024 Influenza Vaccine (#1) 2025 , 06/08/2019, 07/13/2016, Additional history exists DTaP,Tdap,and [...] age to complete this topic Meningococcal B Vaccine Aged Out No l onger eligible based on patient's age to complete this topic RSV Immunization Patients Under 20 months Aged Out No longer eligible based on patient's age to complete this topic Varicella Vaccines Aged Out No longer eligible based on patient's age to complete this topic Insurance [facility] PLAN Advance Directives * Full Code - [...] currently active code status orders. Care Teams Home Economist Relationship Specialty Start Date End Date Lizett Roe MD [address] [place] [address] PCP - General 05/14/24
--- NOTE | 2025-05-13 08:12 | MHC.OFFWIV ---
Intake Vital Signs 05/13/25 08:13 Height 5 ft 7 in Weight 212 lb BMI 33.2 BP 120/68 Blood Pressure Location Lt brachial Position Sitting Pulse 88 Pulse Source Pulse Oximeter Temp 98.0 F Temp Source Oral Pulse Oximetry (%) 98 Oxygen Delivery Method Room Air Intake Visit Reasons: EP Compacted LT ear, can't hear out of Intake Note: presents with left ear pain and blockage for 3 days Patient Tobacco Use Status: Current everyday Tobacco user Allergies acetaminophen (From Tylenol) Adverse Reaction (Verified 05/13/25 08:20) Nausea Do you need a note to return to daycare/school/sports/work: No HPI HPI Comments History of Present Illness Details Patient is a 39-year-old male complaining of left ear pain. He tells me his has a special camera that looks in the ear so he used it and he noticed it was all brown. He thinks it is wax and he would like us to remove it. He admits to reduced hearing in the left ear. [facility] Medical History Hydronephrosis Gross hematuria Internal and external bleeding hemorrhoids Neck pain Renal calculi Palpitations Skin growth New onset headache Hyperlipidemia GERD (gastroesophageal reflux disease) Migraine headache Anxiety Surgical History History of pyeloplasty History of hemorrhoidectomy (~11/10/23) Hx of cystoscopy Family History Father CAD (coronary artery disease), Onset Age: 40 Substance use disorder Mother Mental health disorder Maternal Aunt Throat cancer Social History Household Members: Family Household Members Other:: , 11 yo son, Housing: House Patient Tobacco Use Status: Current everyday Tobacco user Tobacco use type: Cigarette Cigarettes Per Day: 6 Years Smoked: 2004 e-Cigarette/Vaping Use: Never Used service: No Current occupational status: unemployed Current occupational exposures/hazards: No Cognitive needs: No Hearing needs: No Vision needs: No Review of Systems Const All systems reviewed & are unremarkable except as noted in HPI and below Physical Exam Vital Signs: Last Vital Signs Temp 98.0 F 05/13/25 08:13 Pulse 88 05/13/25 08:13 BP 120/68 05/13/25 08:13 Pulse Ox 98 05/13/25 08:13 Oxygen Delivery Method Room Air 05/13/25 08:13 BMI result Body Mass Index 33.2 Const General: cooperative, healthy appearing, comfortable and no acute distress Orientation/consciousness: patient oriented x3 HEENT Head: Yes normal to inspection Ears: mastoids normal, Abnormal EAC present cerumen impaction and unable to visualize TM (cerumen blockage) bilaterally General nose exam: Normal external nose present Face and sinus: Yes normal facial exam Resp Effort & Inspection: normal respiratory effort and able to speak in complete sentences Neuro General: patient oriented x3 Office Procedures Cerumen Removal Details: Tried irrigation and curumen loop, pt unable to tolerate pain, removed only a scant amt of cerumen on left side From which ear canal was the cerumen removed: left Removal: irrigation [id number] Irrigation/Lavage Assessment & Plan Assessment & Plan (1) Impacted cerumen of both ears: Code(s): H61.23 - Impacted cerumen, bilateral Plan: Patient unable to tolerate the pain in the left ear of ear irrigation, appears to have left OE, only a scant amount of cerumen removed with irrigation. Patient will be treated for acute otitis externa of the left ear, told to use Debrox drops for 1 week and then return to the clinic so we can attempt cerumen removal at that time. Sent drops and ibuprofen for pain, advised to use Debrox gtt's nightly for 7 days. Do not use ear buds. (2) Otitis externa, left: Code(s): H60.92 - Unspecified otitis externa, left ear Qualifiers: Otitis externa type: diffuse Chronicity: acute Qualified Code(s): H60.312 - Diffuse otitis externa, left ear Plan: as above Medications: New peethltt-[id number]-PH 3.5-10,000-1 mg/mL-unit/mL-% 4 drps otic (ear) left QID 10 mL 0RF 7 days ibuprofen 600 mg PO Q6H PRN 20 tabs 0RF pain Coding Level of Care Code Est Pt Level 3 (04950) Diagnoses Impacted cerumen of both ears H61.23 Acute diffuse otitis externa of left ear H60.312 Otitis externa type: diffuse Chronicity: acute CPT Codes Office Procedure - CPT: 58854-Fhb Irrigation/Lavage ([id number])
[2025-05-13 08:13] VITALS: BP 120/68; PULSE 88; TEMP 36.7; O2SAT 98; BMI 33.2
== END 2025-05-13 08:52 | disposition home or self-care (01) ==
PROVIDERS: PCP Internal Medicine; Visit Provider Physician Assistant
DX: H60.312 Diffuse otitis externa, left ear (principal); H61.22 Impacted cerumen, left ear

== ENCOUNTER → 2025-05-13 08:00 | Outpatient (BNVA) | payer OTHER, SELFPAY | PROVIDERS: PCP Internal Medicine; Visit Provider Physician Assistant | DX: H61.23 Impacted cerumen, bilateral (principal); H60.312 Diffuse otitis externa, left ear | CPT/HCPCS: 69209; 99212 ==

== ENCOUNTER 2025-06-17 11:31 | Outpatient (REF) | payer OTHER, SELFPAY ==
--- NOTE | ~2025-06-17 | US_ITS ---
CLINICAL HISTORY: N20.0 - Calculus of kidney US of kidneys Comparison: US/SR - US KIDNEY BILATERAL - 11/07/24 12:30 EST Findings: Right kidney is normal in size, echogenicity and morphology, 10.0 cm in length. Diffuse cortical thinning. No calculus, mass or hydronephrosis. Left kidney is normal in size, echogenicity and morphology, 11.4 cm in length. Diffuse cortical thinning. No calculus, mass or hydronephrosis. Limited color Doppler demonstrates unremarkable bilateral blood flow. Impression: No nephrolithiasis. Diffuse renal cortical thinning bilaterally. This document has been electronically signed by: Arelis Holliday MD on 06/18/2025 13:05:27
--- OUTSIDE RECORDS SUMMARY | 2025-06-17 14:25 | XMS_ITS | Clinical Summary ---
Author Organization [facility] Address [address] [place] [address] Phone Care Team Providers Care Hooker Machine Tender Name Role Phone Lizett Roe MD Primary Care Provider [phone] Allergies Active Allergy Reactions Criticality Noted Date [...] Date Smoking Tobacco: Every Day Cigarettes 0.3 19.7 Started: 2006 Passive Smoke Exposure: Current Smokeless [...] 08/28/2022 Social Influencers of Health Screening 08/28/2022 Depression Screening 09/25/2024 COVID-19 Vaccine ( season) 2025 Influenza Vaccine (#1) 2025 , 06/08/2019, 07/13/2016, [...] patient's age to complete this topic Insurance [facility] PLAN Advance Directives * Full Code - [...] currently active code status orders. Care Teams Hooker Machine Tender Relationship Specialty Start Date End Date Lizett Roe MD [address] [facility] [place] [address] PCP - General 05/14/24
== END 2025-06-17 11:32 | disposition home or self-care (01) ==
LOC: HO.HMGCX 11:31
PROVIDERS: PCP Internal Medicine; Visit Provider Urology
DX: N20.0 Calculus of kidney (principal)
CPT/HCPCS: 76775

== ENCOUNTER → 2025-06-17 11:34 | Outpatient (BNV) | payer OTHER, SELFPAY | PROVIDERS: PCP Internal Medicine; Visit Provider Radiology Diagnostic Radiology | DX: N26.1 Atrophy of kidney (terminal) (principal) | CPT/HCPCS: 76775 ==